=== PATIENT | male | born 1985 | race African-American/Black ===

== ENCOUNTER 2016-11-21 19:41 | Emergency (ER) | payer SELFPAY ==
[~2016-11-21] VITALS: Ht 170.2 cm; Wt 104.6 kg
[~2016-11-21 19:41] MED LIST: HYDR-971 PO
--- NOTE | 2016-11-21 19:58 | PHYS DOC ---
Past History Past Medical History: No Pertinent History Past Surgical History: No Surgical History Alcohol Use: None Drug Use: None Adult General HPI HPI Patient is a 31 year old male who presents with right great toe pain. Approximately 2 hours ago he dropped a TV on his toe. He is having pain "12" out of 10 now. Did ambulate here. Review of Systems Review of Systems Musculoskeletal: Foot pain Integument: Denies rash or skin lesions Allergies Allergies Allergies Coded Allergies Type Severity Reaction Last Updated Verified No Known Drug Allergies 11/18/14 No Physical Exam Physical Exam Constitutional: Well developed, well nourished, no acute distress, non-toxic appearance. Skin: Warm, dry, no erythema, no rash. No laceration or abrasion Extremities: Tender over Great toe; slight ecchymosis. NVI distally. Neurologic: Alert and oriented X 3, normal motor function, normal sensory function, no focal deficits noted. Radiology/Procedures Radiology/Procedures Right foot x-ray interpreted by myself at 1915 PM. Shows subtle small fracture of the proximal lateral aspect of the distal phalanx. No dislocation. No metatarsal or carpal fracture noted. Course & Med Decision Making Course & Med Decision Making Xray with small fracture as noted. Placed in post op shoe. Tylenol #3 po here. Home to ice and elevate. Dragon Disclaimer Dragon Disclaimer This chart was dictated in whole or in part using Voice Recognition software in a busy, high-work load, and often noisy Emergency Department environment. It may contain unintended and wholly unrecognized errors or omissions. Departure Departure: Impression: Primary Impression: Fracture of right great toe Disposition: HOME, SELF-CARE Condition: STABLE Referrals: PCP,NO (PCP) Patient Instructions: Toe Fracture Additional Instructions: Wear the post op shoe for comfort Scripts Acetaminophen With Codeine (TYLENOL WITH CODEINE #3 TABLET) 1 Each Tablet 1 TAB PO Q4-6HRS, #30 TAB Prov: LA KRUEGER MD 11/21/16 Problem Qualifiers Primary Impression: Fracture of right great toe Encounter type: initial encounter Fracture type: closed Phalanx: distal Fracture alignment: nondisplaced Qualified Codes: S92.424A - Nondisplaced fracture of distal phalanx of right great toe, initial encounter for closed fracture LA KRUEGER MD Nov 21, 2016 19:58
[2016-11-21] MEDS ORDERED: ACET-704 PO (20:31)
[2016-11-21] MEDS: ACETAMINOPHEN/CODEINE 300/30MG TABLET PO ONE (20:40)
[2016-11-21 20:45] VITALS: BP 144/76
--- NOTE | 2016-11-22 08:08 | RAD ---
Exam performed: 3 views right foot. History: Right foot pain status post dropping TV of the right foot. Severe pain and swelling in the great toe. Date of service: 11/21/16. Comparison: None available 3 views right foot findings: There is a tiny intra-articular fracture lateral aspect of the base of first distal phalanx with overlying soft tissue swelling. The remainder alignment appears preserved. No additional fractures seen. There is diffuse soft tissue swelling. Impression: Intra-articular fracture base of first distal phalanx.
== END 2016-11-21 20:51 | disposition home or self-care (01) ==
LOC: ER 19:41
DX: S92.411A Displaced fracture of proximal phalanx of right great toe, initial encounter for closed fracture (principal); W20.8XXA Other cause of strike by thrown, projected or falling object, initial encounter; Y93.89 Activity, other specified; Y99.8 Other external cause status; Y92.89 Other specified places as the place of occurrence of the external cause
CPT/HCPCS: 73630; 99284

== ENCOUNTER 2018-05-02 15:05 | Emergency (ER) | payer SELFPAY ==
[~2018-05-02 15:05] MED LIST changes: +ACET-704 PO; +HYDR-3165 PO; -HYDR-971 PO
[2018-05-02] MEDS ORDERED: IV NORMAL SALINE 1,000ML 1,000 ML IV SCH (15:31)
[2018-05-02 15:46] LABS: BASO # 0.1 x10^3/uL (0.0-0.2); BASO % 1 % (0-3); EOS # 0.1 x10^3/uL (0.0-0.7); EOS % 1 % (0-3); HEMATOCRIT 50.7 % (39.0-53.0); HEMOGLOBIN 16.7 g/dL (13.0-17.5); LYMPH # 2.6 x10^3/uL (1.0-4.8); LYMPH % 32 % (24-48); MEAN CORPUSCULAR HEMOGLOBIN 28 pg (25-35); MEAN CORPUSCULAR HGB CONC 33 g/dL (31-37); MEAN CORPUSCULAR VOLUME 85 fL (79-100); MONO # 0.8 x10^3/uL (0.0-1.1); MONO % 10 % (0-9); NEUT # 4.5 x10^3uL (1.8-7.7); NEUT % 56 % (31-73); PLATELET COUNT 270 x10^3/uL (140-400); RED BLOOD COUNT 5.96 x10^6/uL (4.30-5.70); RED CELL DISTRIBUTION WIDTH 14.4 % (11.5-14.5)
--- NOTE | 2018-05-02 15:49 | RAD ---
PQRS Compliance statement: One or more of the following individualized dose reduction techniques were utilized for this examination: 1. Automated exposure control. 2. Adjustment of the mA and/or kV according to patient size. 3. Use of iterative reconstruction technique. Indication:AUDITORY/VISUAL HALLUCINATIONS TIMES 3 DAYS WITH DIZZINESS TECHNIQUE: CT head without IV contrast COMPARISON:None FINDINGS: No pathologic extra-axial or intra-axial fluid collection. The ventricles and basal cisterns are within normal limits. No acute intracranial bleed. No focal loss of rascon-white differentiation. Orbits are within normal limits. No acute calvarial fracture suspicious calvarial lesion. Visualized paranasal sinuses and mastoid air cells are clear. IMPRESSION: No acute intracranial process on this noncontrast CT. Electronically signed by: Thom Junior DO (05/02/2018 3:44 PM) [id number]
[2018-05-02 15:57] LABS: ALBUMIN 4.2 g/dL (3.4-5.0); CALCIUM 9.3 mg/dL (8.5-10.1); CREATININE 1.6 mg/dL (0.7-1.3); DIRECT BILIRUBIN 0.1 mg/dL (0.0-0.2); GFR 61.7; MAGNESIUM 2.3 mg/dL (1.8-2.4); POTASSIUM 3.7 mmol/L (3.5-5.1); TOTAL BILIRUBIN 0.7 mg/dL (0.2-1.0); TOTAL PROTEIN 8.2 g/dL (6.4-8.2)
--- NOTE | 2018-05-02 16:04 | PHYS DOC ---
Past History Past Medical History: No Pertinent History Past Surgical History: No Surgical History Smoking: Cigarettes Alcohol Use: Occasionally Drug Use: None Adult General Chief Complaint Chief Complaint: hearing voices, palpitation HPI HPI Patient is a 32 year old made who presents with complaining of multiple problem. Patient states he was in a [employer] party 4 days ago and had alcohol without using any drugs. Patient states for the last 4 days he doesn't feel right and had palpitation without chest pain and shortness of breath. Patient also complaining of hearing radio voice and seeing letters without giving him a special message. Patient denies drinking alcohol for the last 4 days. Patient denies suicidal or homicidal ideation and any medical problem. Patient states he missed his work for the last 4 days. Review of Systems Review of Systems Constitutional: Denies fever or chills [] Eyes: Denies change in visual acuity, redness, or eye pain [] HENT: Denies nasal congestion or sore throat [] Respiratory: Denies cough or shortness of breath [] Cardiovascular: No additional information not addressed in HPI [] GI: Denies abdominal pain, nausea, vomiting, bloody stools or diarrhea [] : Denies dysuria or hematuria [] Musculoskeletal: Denies back pain or joint pain [] Integument: Denies rash or skin lesions [] Neurologic: Denies headache, focal weakness or sensory changes [] Endocrine: Denies polyuria or polydipsia [] All other systems were reviewed and found to be within normal limits, except as documented in this note. Current Medications Current Medications Current Medications Medications (Trade) Dose Ordered Sig/Ayden Start Time Stop Time Status Last Admin Dose Admin Sodium Chloride 1,000 ml @ 1,000 mls/hr Q1H 05/02/18 15:31 05/02/18 16:30 Allergies Allergies Allergies Coded Allergies Type Severity Reaction Last Updated Verified naproxen Allergy Intermediate 11/21/16 Yes Physical Exam Physical Exam Constitutional: Well nourished, mild acute distress, non-toxic appearance, anxious, smelling of alcohol on breath. [] HENT: Normocephalic, atraumatic oropharynx moist, no oral exudates, nose normal. [] Eyes: PERRLA, EOMI, conjunctiva normal, no discharge. [] Neck: Normal range of motion, no tenderness, supple, no stridor. [] Cardiovascular: Tachycardia, no murmur [] Lungs & Thorax: Bilateral breath sounds clear to auscultation [] Abdomen: Bowel sounds normal, soft, no tenderness, no masses, no pulsatile masses. [] Skin: Warm, dry, no erythema, no rash. [] Back: No tenderness, no CVA tenderness. [] Extremities: No tenderness, no cyanosis, no clubbing, ROM intact, no edema. [] Neurologic: Alert and oriented X 3, normal motor function, normal sensory function, no focal deficits noted. [] Psychologic: Affect anxious, judgement normal, mood normal. [] Current Patient Data Vital Signs Vital Signs Date Time Temp Pulse Resp B/P (MAP) Pulse Ox O2 Delivery O2 Flow Rate FiO2 05/02/18 15:40 98.6 116 30 98 Room Air Lab Results Laboratory Tests Test 05/02/18 15:20 White Blood Count 8.0 x10^3/uL (4.0-11.0) Red Blood Count 5.96 x10^6/uL (4.30-5.70) H Hemoglobin 16.7 g/dL (13.0-17.5) Hematocrit 50.7 % (39.0-53.0) Mean Corpuscular Volume 85 fL (79-100) Mean Corpuscular Hemoglobin 28 pg (25-35) Mean Corpuscular Hemoglobin Concent 33 g/dL (31-37) Red Cell Distribution Width 14.4 % (11.5-14.5) Platelet Count 270 x10^3/uL (140-400) Neutrophils (%) (Auto) 56 % (31-73) Lymphocytes (%) (Auto) 32 % (24-48) Monocytes (%) (Auto) 10 % (0-9) H Eosinophils (%) (Auto) 1 % (0-3) Basophils (%) (Auto) 1 % (0-3) Neutrophils # (Auto) 4.5 x10^3uL (1.8-7.7) Lymphocytes # (Auto) 2.6 x10^3/uL (1.0-4.8) Monocytes # (Auto) 0.8 x10^3/uL (0.0-1.1) Eosinophils # (Auto) 0.1 x10^3/uL (0.0-0.7) Basophils # (Auto) 0.1 x10^3/uL (0.0-0.2) EKG EKG EKG interpreted by me. EKG at 1531 showed sinus tachycardia at rate of 107, no acute ST and T-wave abnormalities, normal NH and QT intervals. Radiology/Procedures Radiology/Procedures [] Course & Med Decision Making Course & Med Decision Making Pertinent Labs reviewed. (See chart for details) Evaluation of patient in ER showed 32-year-old male patient with complaining of hearing voices and palpitation and not feeling right for the last 4 days after he had plenty of alcohol without using any drugs. Patient was acting like under influence of the right and had positive methamphetamine in UDS. Patient also had blood alcohol of 19. Patient was advised to avoid using drug and alcohol. Patient denied suicidal or homicidal ideation. Patient ambulated without problem. Dragon Disclaimer Dragon Disclaimer This electronic medical record was generated, in whole or in part, using a voice recognition dictation system. Departure Departure: Impression: Primary Impression: Methamphetamine abuse Additional Impressions: Palpitation Tobacco abuse counseling Tobacco abuse Alcohol abuse Hallucination Disposition: 01 HOME, SELF-CARE (1713) Condition: IMPROVED Referrals: PCP,NO (PCP) Patient Instructions: Alcohol, FAQs, Hallucinations and Delusions, Methamphetamine Abuse, Complications, Smoking Cessation, Tips For Success Additional Instructions: Drink plenty of liquids Follow-up with your primary care physician in 3-5 days Return to ER if not getting better Problem Qualifiers THOMAS GOLDMAN MD May 02, 2018 16:04
[2018-05-02 16:40] VITALS: BP 141/91
[2018-05-02] MEDS ORDERED: IV NORMAL SALINE 1,000ML 1,000 ML IV ONE (16:45)
[2018-05-02 16:58] LABS: AMPHETAMINE/METHAMPHETAMINE POS (NEG); BARBITURATES NEG (NEG); BENZODIAZEPINES NEG (NEG); CANNABINOIDS NEG (NEG); COCAINE NEG (NEG); METHADONE NEG (NEG); OPIATES NEG (NEG); PHENCYCLIDINE NEG (NEG)
[2018-05-02 17:05] LABS: BACTERIA,URINE FEW /HPF (0-FEW); BILIRUBIN,URINE NEG (NEG); CLARITY,URINE HAZY; COLOR,URINE YELLOW; GLUCOSE,URINE NEG (NEG); NITRITE,URINE NEG (NEG); UROBILINOGEN,URINE 2 mg/dL (0.2 mg/dL); WBC,URINE RARE /HPF (0-4)
[2018-05-02 17:06] LABS: HYALINE CASTS, URINE OCC /HPF
--- NOTE | 2018-05-10 08:45 | EKG ---
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
== END 2018-05-02 17:20 | disposition home or self-care (01) ==
LOC: ER 15:05
DX: F15.90 Other stimulant use, unspecified, uncomplicated (principal); R00.2 Palpitations; R44.0 Auditory hallucinations; R42 Dizziness and giddiness; F17.210 Nicotine dependence, cigarettes, uncomplicated; F10.10 Alcohol abuse, uncomplicated; Z71.6 Tobacco abuse counseling; Z88.8 Allergy status to other drugs, medicaments and biological substances; Y90.0 Blood alcohol level of less than 20 mg/100 ml
CPT/HCPCS: 36415; 70450; 80048; 80076; 80307; 81001; 83735; 85025; 93005; 96360; 99284; G0480; J7030

== ENCOUNTER 2018-09-28 11:35 | Emergency (ER) | payer SELFPAY ==
[~2018-09-28] VITALS: Ht 172.7 cm; Wt 94.0 kg
[2018-09-28 13:03] LABS: BASO # 0.1 x10^3/uL (0.0-0.2); BASO % 1 % (0-3); EOS # 0.2 x10^3/uL (0.0-0.7); EOS % 2 % (0-3); HEMATOCRIT 44.2 % (39.0-53.0); HEMOGLOBIN 14.2 g/dL (13.0-17.5); LYMPH # 1.9 x10^3/uL (1.0-4.8); LYMPH % 25 % (24-48); MEAN CORPUSCULAR HEMOGLOBIN 28 pg (25-35); MEAN CORPUSCULAR HGB CONC 32 g/dL (31-37); MEAN CORPUSCULAR VOLUME 86 fL (79-100); MONO # 0.7 x10^3/uL (0.0-1.1); MONO % 9 % (0-9); NEUT # 4.7 x10^3uL (1.8-7.7); NEUT % 63 % (31-73); PLATELET COUNT 215 x10^3/uL (140-400); RED BLOOD COUNT 5.15 x10^6/uL (4.30-5.70); WHITE BLOOD COUNT 7.5 x10^3/uL (4.0-11.0)
[2018-09-28 13:13] LABS: ALBUMIN 3.4 g/dL (3.4-5.0); CALCIUM 8.8 mg/dL (8.5-10.1); CREATININE 1.3 mg/dL (0.7-1.3); GFR 77.9; POTASSIUM 3.5 mmol/L (3.5-5.1); TOTAL BILIRUBIN 0.6 mg/dL (0.2-1.0); TOTAL PROTEIN 6.7 g/dL (6.4-8.2)
[2018-09-28 13:31] LABS: AMPHETAMINE/METHAMPHETAMINE POS (NEG); BARBITURATES NEG (NEG); BENZODIAZEPINES NEG (NEG); CANNABINOIDS NEG (NEG); COCAINE NEG (NEG); METHADONE NEG (NEG); OPIATES NEG (NEG); PHENCYCLIDINE NEG (NEG)
[2018-09-28 13:40] LABS: CLARITY,URINE CLEAR; COLOR,URINE AMBER; GLUCOSE,URINE NEG (NEG)
[2018-09-28 13:41] LABS: BILIRUBIN,URINE NEG (NEG); NITRITE,URINE NEG (NEG); UROBILINOGEN,URINE 8 mg/dL (0.2 mg/dL)
[2018-09-28 13:42] LABS: BACTERIA,URINE 0 /HPF (0-FEW); SQUAMOUS EPITHELIAL CELL,UR FEW /LPF; WBC,URINE 0 /HPF (0-4)
--- NOTE | 2018-09-28 15:29 | PHYS DOC ---
Past History Past Medical History: No Pertinent History Past Surgical History: No Surgical History Smoking: Cigarettes Alcohol Use: Occasionally Drug Use: Cocaine, Methamphetamine Adult General Chief Complaint Chief Complaint: PSYCH EVALUATION HPI HPI 33-year-old male presents with suicidal ideation. The patient has been having spots for some time. They've been getting worse lately. He has also started to hear voices. He is paranoid that people are out to get him and that his only escape his to kill himself. Patient admits that he has been methamphetamine late ly. He denies any medical complaints. He has expressed a desire for help. Review of Systems Review of Systems Constitutional: Denies fever or chills [] Eyes: Denies change in visual acuity, redness, or eye pain [] HENT: Denies nasal congestion or sore throat [] Respiratory: Denies cough or shortness of breath [] Cardiovascular: No additional information not addressed in HPI [] GI: Denies abdominal pain, nausea, vomiting, bloody stools or diarrhea [] : Denies dysuria or hematuria [] Musculoskeletal: Denies back pain or joint pain [] Integument: Denies rash or skin lesions [] Neurologic: Auditory hallucinations, paranoia. Denies headache, focal weakness or sensory changes [] Endocrine: Denies polyuria or polydipsia [] All other systems were reviewed and found to be within normal limits, except as documented in this note. Allergies Allergies Allergies Coded Allergies Type Severity Reaction Last Updated Verified naproxen Allergy Intermediate 11/21/16 Yes Physical Exam Physical Exam Constitutional: Well developed, well nourished, no acute distress, non-toxic appearance. [] HENT: Normocephalic, atraumatic, bilateral external ears normal, oropharynx moist, no oral exudates, nose normal. [] Eyes: PERRLA, EOMI, conjunctiva normal, no discharge. [] Neck: Normal range of motion, no tenderness, supple, no stridor. [] Cardiovascular:Heart rate regular rhythm, no murmur [] Lungs & Thorax: Bilateral breath sounds clear to auscultation [] Abdomen: Bowel sounds normal, soft, no tenderness, no masses, no pulsatile masses. [] Skin: Warm, dry, no erythema, no rash. [] Back: No tenderness, no CVA tenderness. [] Extremities: No tenderness, no cyanosis, no clubbing, ROM intact, no edema. [] Neurologic: Alert and oriented X 3, normal motor function, normal sensory function, no focal deficits noted. [] Psychologic: Affect normal, judgement normal, mood anxious, paranoid. Suicidal ideation, paranoia and auditory hallucinations.[] Current Patient Data Vital Signs Vital Signs Date Time Temp Pulse Resp B/P (MAP) Pulse Ox O2 Delivery O2 Flow Rate FiO2 09/28/18 11:42 97.7 88 16 96 Room Air Lab Results Laboratory Tests Test 09/28/18 12:45 09/28/18 13:09 White Blood Count 7.5 x10^3/uL (4.0-11.0) Red Blood Count 5.15 x10^6/uL (4.30-5.70) Hemoglobin 14.2 g/dL (13.0-17.5) Hematocrit 44.2 % (39.0-53.0) Mean Corpuscular Volume 86 fL (79-100) Mean Corpuscular Hemoglobin 28 pg (25-35) Mean Corpuscular Hemoglobin Concent 32 g/dL (31-37) Red Cell Distribution Width 14.0 % (11.5-14.5) Platelet Count 215 x10^3/uL (140-400) Neutrophils (%) (Auto) 63 % (31-73) Lymphocytes (%) (Auto) 25 % (24-48) Monocytes (%) (Auto) 9 % (0-9) Eosinophils (%) (Auto) 2 % (0-3) Basophils (%) (Auto) 1 % (0-3) Neutrophils # (Auto) 4.7 x10^3uL (1.8-7.7) Lymphocytes # (Auto) 1.9 x10^3/uL (1.0-4.8) Monocytes # (Auto) 0.7 x10^3/uL (0.0-1.1) Eosinophils # (Auto) 0.2 x10^3/uL (0.0-0.7) Basophils # (Auto) 0.1 x10^3/uL (0.0-0.2) Sodium Level 141 mmol/L (136-145) Potassium Level 3.5 mmol/L (3.5-5.1) Chloride Level 106 mmol/L (98-107) Carbon Dioxide Level 27 mmol/L (21-32) Anion Gap 8 (6-14) Blood Urea Nitrogen 11 mg/dL (8-26) Creatinine 1.3 mg/dL (0.7-1.3) Estimated GFR (Cockcroft-Gault) 77.9 BUN/Creatinine Ratio 8 (6-20) Glucose Level 103 mg/dL (70-99) H Calcium Level 8.8 mg/dL (8.5-10.1) Total Bilirubin 0.6 mg/dL (0.2-1.0) Aspartate Amino Transferase (AST) 33 U/L (15-37) Alanine Aminotransferase (ALT) 38 U/L (16-63) Alkaline Phosphatase 57 U/L (46-116) Total Protein 6.7 g/dL (6.4-8.2) Albumin 3.4 g/dL (3.4-5.0) Albumin/Globulin Ratio 1.0 (1.0-1.7) Urine Collection Type Unknown Urine Color Natalee Urine Clarity Clear Urine pH 7.0 Urine Specific Edison 1.025 Urine Protein 30 mg/dl (NEG-TRACE) Urine Glucose (UA) Neg mg/dL (NEG) Urine Ketones (Stick) Trace mg/dL (NEG) Urine Blood Small (NEG) Urine Nitrite Neg (NEG) Urine Bilirubin Neg (NEG) Urine Urobilinogen Dipstick 8 mg/dL (0.2 mg/dL) Urine Leukocyte Esterase Neg (NEG) Urine RBC 11-20 /HPF (0-2) Urine WBC 0 /HPF (0-4) Urine Squamous Epithelial Cells Few /LPF Urine Bacteria 0 /HPF (0-FEW) Urine Mucus Mod /LPF Urine Opiates Screen Neg (NEG) Urine Methadone Screen Neg (NEG) Urine Barbiturates Neg (NEG) Urine Phencyclidine Screen Neg (NEG) Urine Amphetamine/Methamphetamine Pos (NEG) Urine Benzodiazepines Screen Neg (NEG) Urine Cocaine Screen Neg (NEG) Urine Cannabinoids Screen Neg (NEG) Urine Ethyl Alcohol Neg (NEG) EKG EKG [] Radiology/Procedures Radiology/Procedures [] Course & Med Decision Making Course & Med Decision Making Pertinent Labs and Imaging studies reviewed. (See chart for details) The patient will be screened by the [facility]. The psych screening has found that patient does meet inpatient criteria. We are working on placement for the patient at this time. The patient has been accepted for transfer to [facility] by Dr. Holguin. He will go by ambulance. [] Dragon Disclaimer Dragon Disclaimer This electronic medical record was generated, in whole or in part, using a voice recognition dictation system. Departure Departure: Impression: Primary Impression: Hallucination Additional Impression: Methamphetamine abuse Disposition: XFER SHT-TRM HOSP Condition: STABLE Referrals: PCP,NO (PCP) Problem Qualifiers KELSEA BRYANT DO Sep 28, 2018 15:29
[2018-09-28 17:46] VITALS: BP 146/94
== END 2018-09-28 17:46 | disposition short-term general hospital (02) ==
LOC: ER 11:35
DX: R44.0 Auditory hallucinations (principal); F15.10 Other stimulant abuse, uncomplicated; R45.851 Suicidal ideations; F22 Delusional disorders; F17.210 Nicotine dependence, cigarettes, uncomplicated; F12.10 Cannabis abuse, uncomplicated; Z88.6 Allergy status to analgesic agent
CPT/HCPCS: 36415; 80053; 80307; 81001; 85025; 99285

== ENCOUNTER 2019-07-19 07:32 | Emergency (ER) | payer MEDICAID ==
[~2019-07-19] VITALS: Ht 172.7 cm; Wt 90.8 kg
--- NOTE | 2019-07-19 07:49 | EKG ---
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
[2019-07-19 08:00] LABS: BASO % 1 % (0-3); EOS % 0 % (0-3); HEMATOCRIT 43.5 % (39.0-53.0); HEMOGLOBIN 14.4 g/dL (13.0-17.5); LYMPH # 1.8 x10^3/uL (1.0-4.8); LYMPH % 18 % (24-48); MEAN CORPUSCULAR HEMOGLOBIN 28 pg (25-35); MEAN CORPUSCULAR HGB CONC 33 g/dL (31-37); MEAN CORPUSCULAR VOLUME 84 fL (79-100); MONO # 1.1 x10^3/uL (0.0-1.1); MONO % 11 % (0-9); NEUT # 7.1 x10^3uL (1.8-7.7); NEUT % 70 % (31-73); PLATELET COUNT 223 x10^3/uL (140-400); RED CELL DISTRIBUTION WIDTH 14.1 % (11.5-14.5); WHITE BLOOD COUNT 10.1 x10^3/uL (4.0-11.0)
[2019-07-19] MEDS ORDERED: diphenhydrAMINE 50 MG/ML VIAL IVP ONE (08:00)
[2019-07-19 08:15] LABS: CALCIUM 9.1 mg/dL (8.5-10.1); CREATININE 1.2 mg/dL (0.7-1.3); GFR 85.4; POTASSIUM 3.2 mmol/L (3.5-5.1)
--- NOTE | 2019-07-19 08:16 | PHYS DOC ---
Past History Past Medical History: No Pertinent History (KELSEA BRYANT DO) Past Medical History: Anxiety, Depression (JUSTIN MCKEON MD) Past Surgical History: No Surgical History (KELSEA BRYANT DO) Smoking: Cigarettes Alcohol Use: Occasionally Drug Use: Cocaine, Methamphetamine (KELSEA BRYANT DO) General Adult EDM: Chief Complaint: SUICIDAL IDEATION HPI: HPI: 33-year-old male presents with suicidal ideation. The patient has been feeling generally he is tearful during our interview. Patient mitts to doing methamphetamines a few days ago. On arrival his heart rate is 115. Patient states that his suicidal plan is by police. He has had suicidal ideations in the past. He has been hospitalized previously. He denies any medical complaints. (KELSEA BRYANT DO) Review of Systems: Review of Systems: Constitutional: Denies fever or chills Eyes: Denies change in visual acuity HENT: Denies nasal congestion or sore throat Respiratory: Denies cough or shortness of breath Cardiovascular: Denies chest pain or edema GI: Denies abdominal pain, nausea, vomiting, bloody stools or diarrhea : Denies dysuria Musculoskeletal: Denies back pain or joint pain Integument: Denies rash Neurologic: Denies headache, focal weakness or sensory changes Endocrine: Denies polyuria or polydipsia Lymphatic: Denies swollen glands Psychiatric: Depressed, suicidal ideation (KELSEA BRYANT DO) Heart Score: Risk Factors: Risk Factors: DM, Current or recent (<one month) smoker, HTN, HLP, family history of CAD, obesity. Risk Scores: Score 0 - 3: 2.5% MACE over next 6 weeks - Discharge Home Score 4 - 6: 20.3% MACE over next 6 weeks - Admit for Clinical Observation Score 7 - 10: 72.7% MACE over next 6 weeks - Early Invasive Strategies (KELSEA BRYANT DO) Current Medications: Current Meds: Current Medications Medications (Trade) Dose Ordered Sig/Ayden Start Time Stop Time Status Last Admin Dose Admin Diphenhydramine HCl (Benadryl) 25 mg 1X ONCE 07/19/19 08:00 07/19/19 08:01 DC 07/19/19 08:05 25 MG Lorazepam (Ativan Inj) 2 mg 1X ONCE 07/19/19 08:00 07/19/19 08:01 DC 07/19/19 08:05 2 MG (KELSEA BRYANT DO) Allergies: Allergies: Allergies Coded Allergies Type Severity Reaction Last Updated Verified naproxen Allergy Intermediate 11/21/16 Yes (KELSEA BRYANT DO) Physical Exam: PE: Constitutional: Well developed, well nourished, no acute distress, non-toxic appearance. [] HENT: Normocephalic, atraumatic, bilateral external ears normal, oropharynx moist, no oral exudates, nose normal. [] Eyes: PERRLA, EOMI, conjunctiva normal, no discharge. [] Neck: Normal range of motion, no tenderness, supple, no stridor. [] Cardiovascular: Heart rate 15, regular rhythm, no murmur [] Lungs & Thorax: Bilateral breath sounds clear to auscultation [] Abdomen: Bowel sounds normal, soft, no tenderness, no masses, no pulsatile masses. [] Skin: Warm, dry, no erythema, no rash. [] Back: No tenderness, no CVA tenderness. [] Extremities: No tenderness, no cyanosis, no clubbing, ROM intact, no edema. [] Neurologic: Alert and oriented X 3, normal motor function, normal sensory function, no focal deficits noted. [] Psychologic: Tearful, depressed, suicidal [] (KELSEA BRYANT DO) Current Patient Data: Labs: Laboratory Tests Test 07/19/19 07:48 White Blood Count 10.1 x10^3/uL (4.0-11.0) Red Blood Count 5.20 x10^6/uL (4.30-5.70) Hemoglobin 14.4 g/dL (13.0-17.5) Hematocrit 43.5 % (39.0-53.0) Mean Corpuscular Volume 84 fL (79-100) Mean Corpuscular Hemoglobin 28 pg (25-35) Mean Corpuscular Hemoglobin Concent 33 g/dL (31-37) Red Cell Distribution Width 14.1 % (11.5-14.5) Platelet Count 223 x10^3/uL (140-400) Neutrophils (%) (Auto) 70 % (31-73) Lymphocytes (%) (Auto) 18 % (24-48) L Monocytes (%) (Auto) 11 % (0-9) H Eosinophils (%) (Auto) 0 % (0-3) Basophils (%) (Auto) 1 % (0-3) Neutrophils # (Auto) 7.1 x10^3uL (1.8-7.7) Lymphocytes # (Auto) 1.8 x10^3/uL (1.0-4.8) Monocytes # (Auto) 1.1 x10^3/uL (0.0-1.1) Eosinophils # (Auto) 0.0 x10^3/uL (0.0-0.7) Basophils # (Auto) 0.0 x10^3/uL (0.0-0.2) (KELSEA BRYANT DO) EKG: EKG: Sinus tachycardia, rate 115, normal axis, no ST elevations or depressions. [] (KELSEA BRYANT DO) Radiology/Procedures: Radiology/Procedures: [] (KELSEA BRYANT DO) Course & Med Decision Making: Course & Med Decision Making Pertinent Labs and Imaging studies reviewed. (See chart for details) The patient's labs are unremarkable. His urine drug screen is positive for methamphetamine. We have given him 2 mg of Ativan IV. He has been calm throughout his visit. His psychological screen has determined that he needs to be admitted. We are having difficulty finding placement they will accept him. I am signing the patient out to Dr. Mckeon at 1800. [] (KELSEA BRYANT DO) Course & Med Decision Making PT. Accepted at [facility], Dr. Rodriguez. Impression: 1. Suicidal ideation 2. History of polysubstance abuse 3. Tobacco use 4. History depression 5. History of anxiety (JUSTIN MCKEON MD) Dragon Disclaimer: Dragon Disclaimer: This electronic medical record was generated, in whole or in part, using a voice recognition dictation system. (KELSEA BRYANT DO) Departure Departure: Impression: Primary Impression: Depression with suicidal ideation Disposition: 65 XFER TO PSYCH HOSP/UNIT Condition: STABLE Referrals: PCP,NO (PCP) Dragon Disclaimer This chart was dictated in whole or in part using Voice Recognition software in a busy, high-work load, and often noisy Emergency Department environment. It may contain unintended and wholly unrecognized errors or omissions. (JUSTIN MCKEON MD) [place] Disclaimer This chart was dictated in whole or in part using Voice Recognition software in a busy, high-work load, and often noisy Emergency Department environment. It may contain unintended and wholly unrecognized errors or omissions. (JUSTIN MCKEON MD) KELSEA BRYANT DO Jul 19, 2019 08:16 JUSTIN MCKEON MD Jul 20, 2019 01:11
[2019-07-19 08:20] LABS: ALBUMIN 4.4 g/dL (3.4-5.0); ALBUMIN/GLOBULIN RATIO 1.3 (1.0-1.7); TOTAL BILIRUBIN 0.9 mg/dL (0.2-1.0); TOTAL PROTEIN 7.8 g/dL (6.4-8.2)
[2019-07-19] MEDS ORDERED: IV NORMAL SALINE 1,000ML 1,000 ML IV ONE (10:00)
[2019-07-19 13:26] LABS: BARBITURATES NEG (NEG); BENZODIAZEPINES NEG (NEG); CANNABINOIDS NEG (NEG); COCAINE NEG (NEG); METHADONE NEG (NEG); OPIATES NEG (NEG); PHENCYCLIDINE NEG (NEG)
[2019-07-19 13:28] LABS: AMPHETAMINE/METHAMPHETAMINE POS (NEG)
[2019-07-19 13:33] LABS: BACTERIA,URINE FEW /HPF (0-FEW); BILIRUBIN,URINE NEG (NEG); CLARITY,URINE CLEAR; COLOR,URINE AMBER; GLUCOSE,URINE NEG (NEG); NITRITE,URINE NEG (NEG); SQUAMOUS EPITHELIAL CELL,UR FEW /LPF
[2019-07-19 13:34] LABS: HYALINE CASTS, URINE OCC /HPF
[2019-07-19] MEDS ORDERED: POTASSIUM CHLORIDE 20 MEQ TABLET.ER. PO ONE (20:30)
[2019-07-20 07:08] VITALS: BP 107/52
== END 2019-07-20 07:55 ==
LOC: ER 07:32
DX: R45.851 Suicidal ideations (principal); F19.10 Other psychoactive substance abuse, uncomplicated; F32.9 Major depressive disorder, single episode, unspecified; F41.9 Anxiety disorder, unspecified; F15.10 Other stimulant abuse, uncomplicated; F14.10 Cocaine abuse, uncomplicated; F17.210 Nicotine dependence, cigarettes, uncomplicated; Z88.6 Allergy status to analgesic agent
CPT/HCPCS: 36415; 80053; 80307; 81001; 85025; 93005; 96374; 96375; 99285; J1200; J2060; 99291-25; J7030

== ENCOUNTER 2019-07-31 18:18 | Emergency (ER) | payer MEDICAID ==
[~2019-07-31] VITALS: Ht 172.7 cm; Wt 90.8 kg
[2019-07-31] MEDS ORDERED: IV RINGERS SOLUTION,LACTATED 1,000 ML IV SCH (18:29)
--- NOTE | 2019-07-31 18:29 | PHYS DOC ---
Past History Past Medical History: Anxiety, Depression (JUSTIN SANCHEZ MD) Past Surgical History: No Surgical History (JUSTIN SANCHEZ MD) Smoking: Cigarettes Alcohol Use: Occasionally Drug Use: Cocaine, Methamphetamine (JUSTIN SANCHEZ MD) General Adult EDM: Chief Complaint: PSYCH EVALUATION HPI: HPI: ...." I am having problems .. depression...thinking about....killing myself...I was at [facility]...but they sent me out...without meds..and I started using Meth. again....I think some one is injecting me with COVID..." " Some one is poisoning me..".. " I should just ..kill myself.. and get over with it...." Patient is a 33 year old male who presents with above hx and complaints of depression and thoughts of self-harm. Patient has not developed a firm plan on how he would kill himself. Patient having frequent thoughts of suicide. Patient has a past history of anxiety and depression. Patient also having episodes of paranoid delusions and bouts of severe anxiety. Patient has past history of polysubstance abuse. Patient does admit to recent meth use. No history given of immunosuppression. No history of specific ill contacts. No history of recent travel outside the [place] area. Patient previously evaluated our facility on 07/18- for depression and suicidal ideation. (JUSTIN SANCHEZ MD) Review of Systems: Review of Systems: Constitutional: Denies fever or chills Eyes: Denies change in visual acuity HENT: Denies nasal congestion or sore throat Respiratory: Denies cough or shortness of breath Cardiovascular: Denies chest pain or edema GI: Denies abdominal pain, nausea, vomiting, bloody stools or diarrhea : Denies dysuria Musculoskeletal: Denies back pain or joint pain Integument: Denies rash Neurologic: Denies headache, focal weakness or sensory changes Endocrine: Denies polyuria or polydipsia Lymphatic: Denies swollen glands Psychiatric: Complaints of depression, anxiety, and delusions . (JUSTIN SANCHEZ MD) Heart Score: Risk Factors: Risk Factors: DM, Current or recent (<one month) smoker, HTN, HLP, family history of CAD, obesity. Risk Scores: Score 0 - 3: 2.5% MACE over next 6 weeks - Discharge Home Score 4 - 6: 20.3% MACE over next 6 weeks - Admit for Clinical Observation Score 7 - 10: 72.7% MACE over next 6 weeks - Early Invasive Strategies (JUSTIN SANCHEZ MD) Family History: Family History: Noncontributory to presentation (JUSTIN SANCHEZ MD) Current Medications: Current Meds: See nursing for home meds (JUSTIN SANCHEZ MD) Allergies: Allergies: Allergies Coded Allergies Type Severity Reaction Last Updated Verified naproxen Allergy Intermediate 11/21/16 Yes (JUSTIN SANCHEZ MD) Physical Exam: PE: Constitutional: acute emotional distress, non-toxic appearance. [] HENT: Normocephalic, atraumatic, bilateral external ears normal, oropharynx moist, no oral exudates, nose normal. [] Eyes: PERRLA, EOMI, conjunctiva normal, no discharge. [] Neck: Normal range of motion, no tenderness, supple, no stridor. [] Cardiovascular: Tachycardia heart rate regular rhythm, no murmur [] Lungs & Thorax: Bilateral breath sounds equal apex with scattered wheezes on auscultation [] Abdomen: Bowel sounds normal, soft, no tenderness, no masses, no pulsatile masses. [] Skin: Warm, dry, no erythema, no rash. [] Back: No tenderness, no CVA tenderness. [] Extremities: No tenderness, no cyanosis, no clubbing, ROM intact, no edema. [] Neurologic: Alert and oriented X 3, normal motor function, normal sensory function, no focal deficits noted. [] Psychologic: Affect very anxious and agitated, judgement normal, mood reports depression and suicidal ideation. Does appear to have poor insight to his psych issues. Always having delusions of paranoia. (JUSTIN SANCHEZ MD) EKG: EKG: My interpretation EKG shows a sinus rhythm at 110 bpm. No acute morphology [] (JUSTIN SANCHEZ MD) Radiology/Procedures: Radiology/Procedures: [][address] [address] IMAGING REPORT Signed PATIENT: SCOOBY HUNTER ACCOUNT: [id number] : 1985 LOCATION: ER AGE: 33 SEX: M EXAM STATUS: PRE ER ORD. PHYSICIAN: JUSTIN SANCHEZ MD REASON: psych. cough, fever PROCEDURE: PORTABLE CHEST 1V PORTABLE CHEST 1V History: Cough, fever Comparison: June 22, 2015 Findings: Single view of the chest is submitted. There is no infiltrate, pneumothorax, or effusion. The pericardial cardiac silhouette is within normal limits in size. Impression: 1. There is no radiographic evidence of acute cardiopulmonary disease. Electronically signed by: Nara Lucio MD (07/31/2019 7:24 PM) [facility] DICTATED AND SIGNED BY: NARA LUCIO MD DATE: 07/31/191923 CC: JUSTIN SANCHEZ MD; PCP,NO ~ (JUSTIN SANCHEZ MD) Course & Med Decision Making: Course & Med Decision Making Pertinent Labs and Imaging studies reviewed. (See chart for details) with his IV and and and a While Telepsych. was getting information on pt. he left with his IV in and in hospital gown. Security did not arrive in time to restrain the pt. for his Tele. psych. exam. 0015 hrs. Pt.returned to ED by hospital security. Tele psych. advised it would be 1 to 2 hrs. before they could call back to complete his psych. eval. Tele.Psych advised pt. to [facility]. Was just discharged from , with plan follow up. See Tele. Psych. eval. Arron Huston [facility] Impression: 1. Appears to be having acute psychosis with paranoid delusions 2. Depression 3. Anxiety disorder 4. Suicidal ideation 5. Drug Screen + Meth. [] (JUSTIN SANCHEZ MD) Course & Med Decision Making The patient was determined to be voluntary for psychiatric admission. The plan was to [facility] for [id number] appointment and medication discussion. They are not doing [id number] meetings. We encouraged patient to do a telemedicine consult. The patient would like to leave. Since he is voluntary he is allowed to leave. (KELSEA BRYANT DO) Za Disclaimer: Za Disclaimer: This electronic medical record was generated, in whole or in part, using a voice recognition dictation system. (JUSTIN SANCHEZ MD) Departure Departure: Disposition: 01 HOME/RESIDENCE PRIOR TO ADM Condition: STABLE Referrals: PCP,SHANTE (PCP) Za Disclaimer This chart was dictated in whole or in part using Voice Recognition software in a busy, high-work load, and often noisy Emergency Department environment. It may contain unintended and wholly unrecognized errors or omissions. (JUSTIN SANCHEZ MD) JUSTIN SANCHEZ MD July 31, 2019 18:29 KELSEA BRYANT DO August 01, 2019 16:39
--- NOTE | 2019-07-31 19:27 | RAD ---
PORTABLE CHEST 1V History: Cough, fever Comparison: June 22, 2015 Findings: Single view of the chest is submitted. There is no infiltrate, pneumothorax, or effusion. The pericardial cardiac silhouette is within normal limits in size. Impression: 1. There is no radiographic evidence of acute cardiopulmonary disease. Electronically signed by: Jose R Lucio MD (07/31/2019 7:24 PM) [facility]
[2019-07-31 19:53] LABS: CREATININE 1.4 mg/dL (0.7-1.3); GFR 71.5; POTASSIUM 4.2 mmol/L (3.5-5.1)
[2019-07-31 19:54] LABS: BASO % 0 % (0-3); EOS % 0 % (0-3); HEMATOCRIT 44.7 % (39.0-53.0); HEMOGLOBIN 14.6 g/dL (13.0-17.5); LYMPH # 2.8 x10^3/uL (1.0-4.8); LYMPH % 25 % (24-48); MEAN CORPUSCULAR HEMOGLOBIN 28 pg (25-35); MEAN CORPUSCULAR HGB CONC 33 g/dL (31-37); MEAN CORPUSCULAR VOLUME 84 fL (79-100); MONO # 1.5 x10^3/uL (0.0-1.1); MONO % 13 % (0-9); NEUT # 6.8 x10^3uL (1.8-7.7); NEUT % 61 % (31-73); PLATELET COUNT 257 x10^3/uL (140-400); RED BLOOD COUNT 5.31 x10^6/uL (4.30-5.70); RED CELL DISTRIBUTION WIDTH 14.6 % (11.5-14.5); WHITE BLOOD COUNT 11.1 x10^3/uL (4.0-11.0)
[2019-07-31 20:00] LABS: ETHANOL < 10 mg/dL (0-10)
[2019-07-31 20:01] LABS: ACETAMIN < 2.0 mcg/mL (10-30)
[2019-07-31 20:06] LABS: ALBUMIN 4.4 g/dL (3.4-5.0); DIRECT BILIRUBIN 0.2 mg/dL (0.0-0.2); MAGNESIUM 2.2 mg/dL (1.8-2.4); TOTAL BILIRUBIN 0.9 mg/dL (0.2-1.0)
[2019-07-31] MEDS ORDERED: IV RINGERS SOLUTION,LACTATED 1,000 ML IV ONE ×2 (20:45→22:30)
[2019-07-31 23:43] LABS: BARBITURATES NEG (NEG); BENZODIAZEPINES NEG (NEG); CANNABINOIDS NEG (NEG); COCAINE NEG (NEG); METHADONE NEG (NEG); OPIATES NEG (NEG); PHENCYCLIDINE NEG (NEG)
[2019-07-31 23:48] LABS: BILIRUBIN,URINE NEG (NEG); CLARITY,URINE CLEAR; COLOR,URINE YELLOW; GLUCOSE,URINE NEG (NEG)
[2019-07-31 23:49] LABS: BACTERIA,URINE FEW /HPF (0-FEW); NITRITE,URINE NEG (NEG); RBC,URINE OCC /HPF (0-2); SQUAMOUS EPITHELIAL CELL,UR FEW /LPF
[2019-07-31 23:50] LABS: AMPHETAMINE/METHAMPHETAMINE POS (NEG)
[2019-08-01] MEDS ORDERED: LORazepam 1 MG TABLET PO ONE (04:30)
[2019-08-01 07:30] VITALS: BP 131/90
--- NOTE | 2019-08-02 23:08 | EKG ---
[address] [address] Test Date: 2019-07-31 Test Time: 18:43:49 Pat Name: SCOOBY HUNTER Department: Room: Gender: M Post Acute Care Registered Nurse: Marcos : 1985 Requested By: JUSTIN SANCHEZ Order Number: [id number] Reading MD: Measurements Intervals [place] Rate: 110 P: 62 DC: 118 QRS: 59 QRSD: 78 T: 58 QT: 326 QTc: 447 Interpretive Statements SINUS TACHYCARDIA OTHERWISE NORMAL ECG RI6.02 No previous ECG available for comparison
== END 2019-08-01 08:19 | disposition home or self-care (01) ==
LOC: ER 18:18
DX: F23 Brief psychotic disorder (principal); F32.9 Major depressive disorder, single episode, unspecified; F41.9 Anxiety disorder, unspecified; F17.210 Nicotine dependence, cigarettes, uncomplicated; F14.90 Cocaine use, unspecified, uncomplicated; Z88.8 Allergy status to other drugs, medicaments and biological substances
CPT/HCPCS: 36415; 71045; 80048; 80076; 80307; 80329; 81001; 82550; 83690; 83735; 83880; 84443; 84484; 85025; 85610; 85730; 86140; 87086; 93005; 99285; G0480; J7120

== ENCOUNTER 2019-08-02 13:10 | Emergency (ER) | payer MEDICAID ==
[2019-08-01 07:30] VITALS: BP 131/90
[~2019-08-02] VITALS: Ht 167.6 cm; Wt 90.0 kg
--- NOTE | 2019-08-02 13:40 | RAD ---
EXAM: CHEST 1 VIEW History: Shortness of breath COMPARISON: 10/31/2019 TECHNIQUE: Single portable radiograph of the chest FINDINGS: The cardiac silhouette is unremarkable. The lungs are clear bilaterally. The costophrenic sulci are clear and well demarcated. IMPRESSION: No radiographic evidence of an acute cardiopulmonary process. Electronically signed by: Matthew Amos MD (08/02/2019 1:37 PM) [id number]
[2019-08-02 13:57] LABS: AMPHETAMINE/METHAMPHETAMINE POS (NEG); BARBITURATES NEG (NEG); BENZODIAZEPINES NEG (NEG); CANNABINOIDS NEG (NEG); COCAINE NEG (NEG); METHADONE NEG (NEG); OPIATES NEG (NEG); PHENCYCLIDINE NEG (NEG)
--- NOTE | 2019-08-02 14:22 | PHYS DOC ---
Past History Past Medical History: A-Fib, Anxiety, Depression, Hypertension Past Surgical History: No Surgical History Smoking: Cigarettes Alcohol Use: Occasionally Drug Use: Cocaine, Methamphetamine General Adult EDM: Chief Complaint: SHORTNESS OF BREATH HPI: HPI: 33 yo M PMH depression presents to the ed bibems after bystanders called 911, [place]-pt states "I was playing on the benches." Pt with many complaints - states he tested positive for covid at [facility] yesterday. Did meth 2 day ago and has had chest pain since last night. Feels as if he can't breath. ROS: Denies associated SI, HI, hallucinations, fever, chills, n/v/d/c, sore throat, drooling, headache, neck stiffness, chest pain, hemoptysis, orthopnea, back pain, rash, or leg swelling. Review of Systems: Review of Systems: Constitutional: Denies fever or chills Eyes: Denies change in visual acuity HENT: Denies nasal congestion or sore throat Respiratory: Denies cough or shortness of breath Cardiovascular: Denies chest pain or edema GI: Denies abdominal pain, nausea, vomiting, bloody stools or diarrhea : Denies dysuria Musculoskeletal: Denies back pain or joint pain Integument: Denies rash Neurologic: Denies headache, focal weakness or sensory changes Endocrine: Denies polyuria or polydipsia Lymphatic: Denies swollen glands Psychiatric: Denies depression or anxiety Heart Score: Risk Factors: Risk Factors: DM, Current or recent (<one month) smoker, HTN, HLP, family history of CAD, obesity. Risk Scores: Score 0 - 3: 2.5% MACE over next 6 weeks - Discharge Home Score 4 - 6: 20.3% MACE over next 6 weeks - Admit for Clinical Observation Score 7 - 10: 72.7% MACE over next 6 weeks - Early Invasive Strategies Allergies: Allergies: Allergies Coded Allergies Type Severity Reaction Last Updated Verified naproxen Allergy Intermediate 11/21/16 Yes Physical Exam: PE: Constitutional: Well developed, well nourished, no acute distress, non-toxic appearance. [] HENT: Normocephalic, atraumatic, bilateral external ears normal, oropharynx moist, no oral exudates, nose normal. [] Eyes: PERRLA, EOMI, conjunctiva normal, no discharge. [] Neck: Normal range of motion, no tenderness, supple, no stridor. [] Cardiovascular:Heart rate regular rhythm, no murmur [] Lungs & Thorax: Bilateral breath sounds clear to auscultation, speaking in full sentences, 100% RA, no respiratory distress, no active cough Abdomen: Bowel sounds normal, soft, no tenderness, no masses, no pulsatile masses. [] Skin: Warm, dry, no erythema, no rash. [] Back: No tenderness, no CVA tenderness. [] Extremities: No tenderness, no cyanosis, no clubbing, ROM intact, no edema. [] Neurologic: Alert and oriented X 3, normal motor function, normal sensory function, no focal deficits noted. [] Psychologic: Affect normal, judgement normal, mood normal, no psychosis, w/[facility] Current Patient Data: Labs: Laboratory Tests Test 08/02/19 13:28 Urine Opiates Screen Neg (NEG) Urine Methadone Screen Neg (NEG) Urine Barbiturates Neg (NEG) Urine Phencyclidine Screen Neg (NEG) Urine Amphetamine/Methamphetamine Pos (NEG) Urine Benzodiazepines Screen Neg (NEG) Urine Cocaine Screen Neg (NEG) Urine Cannabinoids Screen Neg (NEG) Urine Ethyl Alcohol Neg (NEG) EKG: EKG: [] Radiology/Procedures: Radiology/Procedures: [] Impressions: RN called [facility]-no record of pt in ed for the past 3 months. Per rn pt was in ed the prior night and disposed to outpt psych this morning after a psych assessment. The patient has left the emergency department (seen by myself/rn exiting trauma bay - heard us calling for him to return). Pt did not communicate leaving to myself, rn or staff. There was no opportunity to discuss pts' deciison to leave, provide medical advice or discuss alternatives to leaving. Pt had [facility], was aware he was not medically cleared from life or limb threatening processes. Course & Med Decision Making: Course & Med Decision Making Pertinent Labs and Imaging studies reviewed. (See chart for details) This patient has left emergency department waiting room with no communication to myself, nursing or administrative staff. There was no opportunity to discuss the patient's decision to leave, provide medical advice or discuss alternatives to leaving. The staff has made efforts to locate the patient without success. Dragon Disclaimer: Dragon Disclaimer: This electronic medical record was generated, in whole or in part, using a voice recognition dictation system. Departure Departure: Impression: Primary Impression: Methamphetamine abuse Disposition: 05 TRANSFER OTHER (eloped without notifying medical staff) Condition: LEFT WITHOUT BEING SEEN (eloped) Referrals: FLORENCE HAN (PCP) JAKY ENAMORADO DO August 02, 2019 14:22
[2019-08-02 14:36] LABS: BASO # 0.1 x10^3/uL (0.0-0.2); BASO % 1 % (0-3); EOS % 0 % (0-3); HEMATOCRIT 42.4 % (39.0-53.0); HEMOGLOBIN 13.9 g/dL (13.0-17.5); LYMPH # 2.1 x10^3/uL (1.0-4.8); LYMPH % 20 % (24-48); MEAN CORPUSCULAR HEMOGLOBIN 28 pg (25-35); MEAN CORPUSCULAR HGB CONC 33 g/dL (31-37); MEAN CORPUSCULAR VOLUME 85 fL (79-100); MONO # 1.3 x10^3/uL (0.0-1.1); MONO % 13 % (0-9); NEUT # 6.9 x10^3uL (1.8-7.7); NEUT % 67 % (31-73); PLATELET COUNT 232 x10^3/uL (140-400); RED BLOOD COUNT 5.02 x10^6/uL (4.30-5.70); WHITE BLOOD COUNT 10.4 x10^3/uL (4.0-11.0)
[2019-08-02 14:45] LABS: CALCIUM 9.1 mg/dL (8.5-10.1); CREATININE 1.3 mg/dL (0.7-1.3); GFR 77.9
[2019-08-02 14:52] LABS: ALBUMIN/GLOBULIN RATIO 1.1 (1.0-1.7); TOTAL BILIRUBIN 0.8 mg/dL (0.2-1.0); TOTAL PROTEIN 7.7 g/dL (6.4-8.2)
== END 2019-08-02 14:10 | disposition left against medical advice (07) ==
LOC: ER 13:10
DX: F15.10 Other stimulant abuse, uncomplicated (principal); R07.89 Other chest pain; I48.20 Chronic atrial fibrillation, unspecified; F41.9 Anxiety disorder, unspecified; F32.9 Major depressive disorder, single episode, unspecified; I10 Essential (primary) hypertension; F14.90 Cocaine use, unspecified, uncomplicated; F17.210 Nicotine dependence, cigarettes, uncomplicated; Z88.6 Allergy status to analgesic agent
CPT/HCPCS: 36415; 71045; 80053; 80307; 84484; 85025; 99284; G0480

== ENCOUNTER 2020-10-23 08:13 | Inpatient (IN) | payer MEDICAID ==
[~2020-10-23] VITALS: Ht 172.7 cm; Wt 109.0 kg
[2020-10-23] MEDS ORDERED: ACETAMINOPHEN 500 MG TABLET PO ONE ×2 (08:45→09:03)
[2020-10-23] MEDS ORDERED: METOCLOPRAMIDE HCL 10 MG/2 ML VIAL. IVP ONE (08:45)
[2020-10-23] MEDS ORDERED: IV NORMAL SALINE 1,000ML 1,000 ML IV SCH (08:45)
--- NOTE | 2020-10-23 08:52 | PHYS DOC ---
Past History Past Medical History: No Pertinent History Additional Past Medical Histor: " fluid around heart" Past Surgical History: No Surgical History Smoking: Cigarettes Alcohol Use: Occasionally Drug Use: Cocaine, Methamphetamine General Adult EDM: Chief Complaint: MULTIPLE COMPLAINTS Problems: (1) Fatigue (2) Chest pain HPI: HPI: 35-year-old male presents to the emergency department with multiple complaints including fatigue, chills, chest pain, cough, shortness of breath, nausea, headache and overall just not feeling well. He reports that his chest pain is present when he breathes in deeply, but not there at rest. He admits to some shortness of breath, chills and fever. He has not treated his symptoms at home with anything. He has been vaccinated for Covid, saying that he has had 2 shots. His chest pain does not radiate, is intermittent when he breathes. The patient denies any history of blood clots in his legs or his lungs. The patient denies abdominal pain, urinary symptoms, recent trauma, or any other complaints. Review of Systems: Review of Systems: Constitutional: Admits to fever and chills. Eyes: Denies change in vision, pain. HENT: Admits to congestion, denies loss of sense of taste or smell. Respiratory: Admits to cough and shortness of breath. Cardiovascular: Admits to chest pain, denies leg swelling. GI: Admits to nausea, denies abdominal pain. : Denies change in urination, dysuria. Musculoskeletal: Denies extremity pain, or trauma. Skin: Denies rash, skin change. Neurologic: Admits to headache, denies focal weakness. Psychiatric: Denies depression or anxiety. All other systems reviewed as negative except for what was mentioned in the HPI. Family History: Family History: Noncontributory Current Medications: Current Meds: Current Medications Medications (Trade) Dose Ordered Sig/Ayden Route PRN Reason Start Time Stop Time Status Last Admin Dose Admin Sodium Chloride 1,000 ml @ 1,000 mls/hr Q1H IV 10/23/20 08:45 10/23/20 09:44 DC 10/23/20 09:24 Acetaminophen (Tylenol) 1,000 mg 1X ONCE PO 10/23/20 08:45 10/23/20 09:03 DC 10/23/20 09:16 Metoclopramide HCl (Reglan Vial) 10 mg 1X ONCE IVP 10/23/20 08:45 10/23/20 09:03 DC 10/23/20 09:25 Iohexol (Omnipaque 350 Mg/ml) 100 ml 1X ONCE IV 10/23/20 10:30 10/23/20 10:36 DC 10/23/20 10:39 Allergies: Allergies: Allergies Coded Allergies Type Severity Reaction Last Updated Verified naproxen Allergy Intermediate 10/23/20 Yes Physical Exam: PE: Constitutional: No acute distress, non-toxic appearance. Coughing at the bedside. HENT: Atraumatic, bilateral external ears normal, nose normal. Eyes: PERRLA, EOMI, conjunctiva normal, no discharge. Neck: Normal range of motion, supple, no stridor. Cardiovascular: Heart rate tachycardic on exam. 2+ radial pulses Lungs & Thorax: No respiratory distress, symmetrical expansion. Bilateral breath sounds clear to auscultation Abdomen: Soft, no tenderness Skin: Warm, dry. Extremities: No tenderness, no cyanosis, ROM intact, no edema. Neurologic: Alert and oriented X 3, normal motor function, normal sensory function, no focal deficits noted. Non ataxic gait. GCS 15. Psychologic: Affect normal, judgment normal, mood normal. Current Patient Data: Labs: Laboratory Tests Test 10/23/20 09:20 White Blood Count 12.8 x10^3/uL (4.0-11.0) H Red Blood Count 4.89 x10^6/uL (4.30-5.70) Hemoglobin 13.9 g/dL (13.0-17.5) Hematocrit 43.3 % (39.0-53.0) Mean Corpuscular Volume 89 fL (79-100) Mean Corpuscular Hemoglobin 28 pg (25-35) Mean Corpuscular Hemoglobin Concent 32 g/dL (31-37) Red Cell Distribution Width 14.1 % (11.5-14.5) Platelet Count 268 x10^3/uL (140-400) Neutrophils (%) (Auto) 72 % (31-73) Lymphocytes (%) (Auto) 17 % (24-48) L Monocytes (%) (Auto) 11 % (0-9) H Eosinophils (%) (Auto) 0 % (0-3) Basophils (%) (Auto) 0 % (0-3) Neutrophils # (Auto) 9.2 x10^3uL (1.8-7.7) H Lymphocytes # (Auto) 2.1 x10^3/uL (1.0-4.8) Monocytes # (Auto) 1.4 x10^3/uL (0.0-1.1) H Eosinophils # (Auto) 0.0 x10^3/uL (0.0-0.7) Basophils # (Auto) 0.1 x10^3/uL (0.0-0.2) Prothrombin Time 10.4 SEC (9.4-11.4) Prothrombin Time INR 1.0 (0.9-1.1) Activated Partial Thromboplast Time 27 SEC (23-33) D-Dimer (Thu) 0.62 mg/L (0.00-0.50) H Sodium Level 135 mmol/L (136-145) L Potassium Level 4.4 mmol/L (3.5-5.1) Chloride Level 100 mmol/L (98-107) Carbon Dioxide Level 26 mmol/L (21-32) Anion Gap 9 (6-14) Blood Urea Nitrogen 9 mg/dL (8-26) Creatinine 1.3 mg/dL (0.7-1.3) Estimated GFR (Cockcroft-Gault) 76.9 Glucose Level 99 mg/dL (70-99) Calcium Level 8.8 mg/dL (8.5-10.1) Troponin I Quantitative < 0.017 ng/mL (0-0.055) OC-Nab-O-Type Natriuretic Peptide 386 pg/mL (0-124) H Vital Signs: Vital Signs Date Time Temp Pulse Resp B/P (MAP) Pulse Ox O2 Delivery O2 Flow Rate FiO2 10/23/20 08:15 100.6 122 18 158/109 97 Room Air EKG: EKG: Sinus tachycardia rate of 108, no ST-T wave changes, no ectopic beats, normal axis, normal AR, QRS, and QTc intervals. Impression: Sinus tachycardia, otherwise normal EKG interpreted by Samir george D.O. Radiology/Procedures: Radiology/Procedures: PROCEDURE: PORTABLE CHEST 1V XR CHEST 1V History: Reason: chest pain / Spl. Instructions: / History: Comparison: August 02, 2019 Findings: Mild ill-defined bibasilar opacities. No pleural effusion. No pneumothorax. Normal heart size. Impression: 1. Mild ill-defined bibasilar opacities, may represent atelectasis or developing infiltrates. Electronically signed by: Ovi Harris DO (10/23/2020 9:24 AM) EXAM: CT ANGIOGRAPHY OF THE CHEST WITH AND WITHOUT CONTRAST. HISTORY: Elevated d-dimer, chest pain. TECHNIQUE: Computed tomographic angiography of the chest was performed before and after the intravenous administration of iodinated contrast. 3-D maximum intensity projections were also performed. One or more of the following individualized dose reduction techniques were utilized for this examination: 1. Automated exposure control. 2. Adjustment of the mA and/or kV according to patient size. 3. Use of iterative reconstruction technique. COMPARISON: None. FINDINGS: Images of the upper abdomen reveal no acute abnormality. Bone windows reveal no suspicious lesions. No pulmonary emboli are identified. There is no aortic dissection or aneurysm. There is groundglass opacity and some consolidation throughout the posterior segment of the left lower lobe consistent with pneumonia. Prominent subcarinal and left hilar lymph nodes are most likely reactive in the setting. There is no pleural or pericardial effusion. The heart is not enlarged. IMPRESSION: 1. Left lower lobe pneumonia. Prominent mediastinal lymph nodes are likely reactive in this setting. 2. No pulmonary embolism. Electronically signed by: Noé Hidalgo MD (10/23/2020 11:13 AM) Heart Score: C/O Chest Pain: Yes HEART Score for Chest Pain: HEART Score for Chest Pain Response (Comments) Value History Slighlty/Non-Suspicious 0 ECG Normal 0 Age < 45 0 Risk Factors 1 or 2 Risk Factors 1 Troponin < Normal Limit 0 Total 1 Course & Med Decision Making: Course & Med Decision Making Patient with evidence for a bacterial pneumonia with a consolidation in the left lung on CTA as above. He was tested for Covid which is pending at this time. He was tachycardic upon admission with improvement in his heart rate to the high 90s with fluids. He was given antipyretic also with improvement. The patient d enies recent antibiotic use (including IV antibiotics), hospitalizations more than 48 hours within the last 3 months. He was started on ceftriaxone and azithromycin for community-acquired pneumonia and will be admitted to the hospital Discussed case with Dr. Gaytan at 1125 who will admit the patient to the floor. Departure Departure: Impression: Primary Impression: Community acquired pneumonia Disposition: ADMITTED INPATIENT Admitting Physician: Ladan Gaytan Condition: STABLE Referrals: FLORENCE HAN (PCP) SAMIR ELIZONDO DO Oct 23, 2020 08:52
[2020-10-23] MEDS ORDERED: ONDANSETRON PF 4 MG/2 ML VIAL. ONE (09:03)
--- NOTE | 2020-10-23 09:22 | EKG ---
[address] [address] Test Date: 2020-10-23 Test Time: 08:35:03 Pat Name: SCOOBY HUNTER Department: Room: Gender: M Nursing Tech: : 1985 Requested By: SAMIR ELIZONDO Order Number: [id number] Reading MD: Measurements Intervals [place] Rate: 108 P: 57 DE: 112 QRS: 55 QRSD: 76 T: 57 QT: 318 QTc: 430 Interpretive Statements SINUS TACHYCARDIA OTHERWISE NORMAL ECG RI6.02 No previous ECG available for comparison
--- NOTE | 2020-10-23 09:26 | RAD ---
XR CHEST 1V History: Reason: chest pain / Spl. Instructions: / History: Comparison: August 02, 2019 Findings: Mild ill-defined bibasilar opacities. No pleural effusion. No pneumothorax. Normal heart size. Impression: 1. Mild ill-defined bibasilar opacities, may represent atelectasis or developing infiltrates. Electronically signed by: Ovi Harris DO (10/23/2020 9:24 AM) [id number]
[2020-10-23 09:52] LABS: BASO # 0.1 x10^3/uL (0.0-0.2); BASO % 0 % (0-3); EOS % 0 % (0-3); HEMATOCRIT 43.3 % (39.0-53.0); HEMOGLOBIN 13.9 g/dL (13.0-17.5); LYMPH # 2.1 x10^3/uL (1.0-4.8); LYMPH % 17 % (24-48); MEAN CORPUSCULAR HEMOGLOBIN 28 pg (25-35); MEAN CORPUSCULAR HGB CONC 32 g/dL (31-37); MEAN CORPUSCULAR VOLUME 89 fL (79-100); MONO # 1.4 x10^3/uL (0.0-1.1); MONO % 11 % (0-9); NEUT # 9.2 x10^3uL (1.8-7.7); NEUT % 72 % (31-73); PLATELET COUNT 268 x10^3/uL (140-400); RED BLOOD COUNT 4.89 x10^6/uL (4.30-5.70); RED CELL DISTRIBUTION WIDTH 14.1 % (11.5-14.5); WHITE BLOOD COUNT 12.8 x10^3/uL (4.0-11.0)
[2020-10-23 10:04] LABS: CALCIUM 8.8 mg/dL (8.5-10.1); CREATININE 1.3 mg/dL (0.7-1.3); GFR 76.9; POTASSIUM 4.4 mmol/L (3.5-5.1)
[2020-10-23] MEDS ORDERED: IOHEXOL 350 MG/ML 100 ML VIAL. IV ONE (10:30)
--- NOTE | 2020-10-23 11:15 | RAD ---
EXAM: CT ANGIOGRAPHY OF THE CHEST WITH AND WITHOUT CONTRAST. HISTORY: Elevated d-dimer, chest pain. TECHNIQUE: Computed tomographic angiography of the chest was performed before and after the intraveno us administration of iodinated contrast. 3-D maximum intensity projections were also performed. One o r more of the following individualized dose reduction techniques were utilized for this examination: 1. Automated exposure control. 2. Adjustment of the mA and/or kV according to patient size. 3. Use of iterative reconstruction technique. COMPARISON: None. FINDINGS: Images of the upper abdomen reveal no acute abnormality. Bone windows reveal no suspicious lesions. No pulmonary emboli are identified. There is no aortic dissection or aneurysm. There is groundglass opacity and some consolidation throughout the posterior segment of the left lowe r lobe consistent with pneumonia. Prominent subcarinal and left hilar lymph nodes are most likely uma ctive in the setting. There is no pleural or pericardial effusion. The heart is not enlarged. IMPRESSION: 1. Left lower lobe pneumonia. Prominent mediastinal lymph nodes are likely reactive in this setting. 2. No pulmonary embolism. Electronically signed by: Noé Hidalgo MD (10/23/2020 11:13 AM) [facility]
[2020-10-23] MEDS ORDERED: IV NORMAL SALINE 100ML 100 ML ONE (11:29)
[2020-10-23] MEDS ORDERED: IV NORMAL SALINE 250ML 250 ML ONE (11:29)
[2020-10-23] MEDS ORDERED: AZITHROMYCIN 500 MG VIAL. IV ONE (11:29)
[2020-10-23] MEDS ORDERED: AZITHROMYCIN 500 MG in IV NORMAL SALINE 250ML 250 ML IV ONE (11:30)
[2020-10-23 15:30] VITALS: BP 149/85
[2020-10-23] MEDS ORDERED: LISINOPRIL 5 MG TABLET. PO ONE (16:15)
[2020-10-23] MEDS: ACETAMINOPHEN 325 MG TABLET PO PRN ×2 (16:29→23:22)
[2020-10-23] MEDS: oxyCODONE IR 5 MG TABLET PO PRN ×2 (16:30→23:23)
[2020-10-23] MEDS ORDERED: ENOXAPARIN 40 MG/0.4 ML SYRINGE. SQ SCH (17:00)
--- NOTE | 2020-10-23 17:02 | HP ---
ADMIT DATE: 10/23/2020 HISTORY OF PRESENT ILLNESS: The patient is a 35-year-old -[place] male patient who presented to the Emergency Room with complaint of fatigue, chills, chest pain, cough, shortness of breath, headache, as well as diarrhea. All the symptoms started about 4 days ago. He had also had fever today. His chest pain is present when he breathes in deeply, but not there at rest. He admits to some chills. He has treated his symptoms. He has been taking DayQuil and ibuprofen 800 mg twice a day without any improvement. However, he did complete his COVID vaccination, took 2 Moderna shots. His pain is mostly pleuritic in nature, does not radiate. He denied any history of blood clots in his legs or his lungs. He did have history of what seemed to be a pericardial effusion that was drained about a year ago at [facility]. He was extensively investigated in the Emergency Room and has had lab work that showed he has a mild leukocytosis with a white cell count 12,800. His D-dimer was slightly elevated at 0.62. His chemistry was mostly unremarkable. He did have chest x-ray that showed mild ill-defined bibasilar opacities, may represent atelectasis or developing infiltrate; however, CT angio of the chest showed that the patient has left lower lobe pneumonia, prominent lymph nodes are likely reactive in this setting, no pulmonary embolism. The patient was admitted, has also some ground glass opacities and some consolidation throughout the posterior segment of the left lower lobe consistent with pneumonia. There is no pleural or pericardial effusion. The heart is not enlarged. The patient was admitted with left lower lobe pneumonia and was kept in isolation for possible COVID-19 infection, although has already received his vaccine and completed his vaccination. PAST MEDICAL HISTORY: Significant for hypertension. He also has what seemed to be a pericardial effusion. PAST SURGICAL HISTORY: Significant for pericardiocentesis. ALLERGIES: HE IS ALLERGIC TO NAPROXEN. MEDICATIONS: He was on DayQuil and ibuprofen, both [id number]. FAMILY HISTORY: He is an only child. Both parents are alive. His father is a 54-year-old and has hypertension. Mother is alive and is 57 years old and has hypertension. SOCIAL HISTORY: He is single, has no children. He smokes cigars, drinks alcohol socially. Although he denied any drug use to me, he apparently has a history of cocaine and methamphetamine. PHYSICAL EXAMINATION: GENERAL: On arrival to the emergency room, the patient looked well and was clearly in no apparent respiratory distress. No pallor, jaundice, cyanosis or thyromegaly. No jugular venous distention. No lower limb edema. VITAL SIGNS: His heart rate was 96, blood pressure was 162/101, temperature was 99.7, respiratory rate was 18 and oxygen saturation was 96% on room air. HEAD, EYES, EARS, NOSE, AND THROAT: Normocephalic, atraumatic. NECK: Supple. HEART: Normal first and second heart sounds, no gallop or murmur. CHEST: Shows central trachea, equal bilateral chest expansion and air entry, vesicular breath sounds with crepitation mostly on the left side posteriorly, has very few scattered rhonchi. ABDOMEN: Distended, soft, nontender. NEUROLOGIC: He was awake, alert, responding appropriately. All cranial nerves intact. He ambulates without assistance or assistive devices. LABORATORY DATA: Showed a white cell count 12,800, hemoglobin 14, hematocrit 43, MCV 89 and platelet count 268,000 with normal manual differential. His chemistry showed a serum sodium 135, potassium 4.4, chloride 100, bicarbonate 26, anion gap of 9, BUN 9, creatinine 1.3. Estimated GFR was 77 mL per minute. His glucose was 99, calcium was 8.8. Had in fact 3 sets of cardiac enzymes that ruled out myocardial infarction. His beta natriuretic was only 386. His prothrombin time, INR and APTT are normal. D-dimer was slightly elevated at 0.62. His chest x-ray showed mild ill-defined bibasilar opacities that may represent atelectasis or developing infiltrate. CT angio of the chest showed the patient has images of the upper abdomen revealed no acute abnormality. Bone windows reveal no suspicious lesions. No pulmonary emboli identified. There is no aortic dissection or aneurysm. There is ground glass opacity and some consolidation throughout the posterior segment of the left lower lobe consistent with pneumonia; prominent subcarinal and left hilar lymph nodes are most likely reactive in this setting. There is no pleural or pericardial effusion. The heart is not enlarged. ASSESSMENT AND PLAN: 1. The patient was admitted with a diagnosis of community-acquired pneumonia. 2. Hypertension. 3. The patient was put as a person under investigation, although he has completed his COVID vaccination. He does have a history of apparently cocaine and amphetamine abuse and smokes cigars. My plan is to continue with IV antibiotic in the form of ceftriaxone as well as Zithromax. Continue with pain management, start him also on perhaps amlodipine or lisinopril and follow response on a daily basis. ABIGAIL DR: Asael TID: [id number]
[2020-10-23] MEDS: ENOXAPARIN 40 MG/0.4 ML SYRINGE. SQ SCH (20:14)
[2020-10-23 20:27] VITALS: BP 143/91
[2020-10-24 05:14] VITALS: BP 128/80
[2020-10-24 07:05] LABS: BASO % 0 % (0-3); EOS # 0.1 x10^3/uL (0.0-0.7); EOS % 1 % (0-3); HEMATOCRIT 40.1 % (39.0-53.0); LYMPH # 2.3 x10^3/uL (1.0-4.8); LYMPH % 20 % (24-48); MEAN CORPUSCULAR HEMOGLOBIN 28 pg (25-35); MEAN CORPUSCULAR HGB CONC 33 g/dL (31-37); MEAN CORPUSCULAR VOLUME 87 fL (79-100); MONO # 1.8 x10^3/uL (0.0-1.1); MONO % 15 % (0-9); NEUT # 7.6 x10^3uL (1.8-7.7); NEUT % 65 % (31-73); PLATELET COUNT 252 x10^3/uL (140-400); RED BLOOD COUNT 4.59 x10^6/uL (4.30-5.70); RED CELL DISTRIBUTION WIDTH 13.9 % (11.5-14.5); WHITE BLOOD COUNT 11.7 x10^3/uL (4.0-11.0)
[2020-10-24 07:23] LABS: ALBUMIN/GLOBULIN RATIO 0.7 (1.0-1.7); CALCIUM 8.5 mg/dL (8.5-10.1); CREATININE 1.2 mg/dL (0.7-1.3); GFR 84.4; POTASSIUM 4.3 mmol/L (3.5-5.1); TOTAL BILIRUBIN 0.3 mg/dL (0.2-1.0); TOTAL PROTEIN 7.2 g/dL (6.4-8.2)
[2020-10-24] MEDS: LISINOPRIL 10 MG TABLET PO SCH (08:28)
[2020-10-24] MEDS: ACETAMINOPHEN 325 MG TABLET PO PRN ×2 (08:28→16:31)
[2020-10-24] MEDS: AZITHROMYCIN 250 MG TABLET. PO SCH (08:28)
[2020-10-24] MEDS: oxyCODONE IR 5 MG TABLET PO PRN ×3 (08:29→21:46)
[2020-10-24 10:30] VITALS: BP 128/84
[2020-10-24 15:03] VITALS: BP 135/89
[2020-10-24 20:17] VITALS: BP 153/92
[2020-10-24] MEDS: ENOXAPARIN 40 MG/0.4 ML SYRINGE. SQ SCH (21:46)
[2020-10-24] MEDS: LACTOBACILLUS RHAMNOSUS GG 1 CAPSULE. PO SCH (21:46)
--- NOTE | 2020-10-24 22:48 | PN ---
DATE: 10/24/2020 SUBJECTIVE: The patient is sitting on edge of the bed comfortably, in no apparent distress. He continued to complain of a headache and also chest pain, particularly when he coughs or takes a deep breath. Denied any blurring of vision, tingling, or numbness. PHYSICAL EXAMINATION: GENERAL: When I examined him, he looked well and was clearly in no apparent respiratory distress. There was no pallor, jaundice, cyanosis, or thyromegaly. No jugular venous distention. No lower limb edema. VITAL SIGNS: His heart rate was 91, blood pressure is 128/84, temperature was 98.4, respiratory rate 20, and oxygen saturation was 96% on room air. HEAD, EYES, EARS, NOSE, AND THROAT: Normocephalic, atraumatic. NECK: Supple. HEART: Normal first and second heart sounds, no gallop or murmur. CHEST: Shows central trachea, equal bilateral expansion, air entry, vesicular breath sounds with crepitation mostly in the left side posteriorly. I could not appreciate any rhonchi. ABDOMEN: Distended, soft, and nontender. NEUROLOGIC: He was grossly intact. His intake and output are incompletely recorded. LABORATORY DATA: This morning showed a white cell count of 11,700, hemoglobin 13, hematocrit 40, MCV 87 and platelet count 252,000. Serum sodium was 135, potassium 4.3, chloride 102, bicarbonate 26, anion gap of 7, BUN 9, creatinine 1.2. Estimated GFR was 84 mL per minute. His glucose was 102, calcium 8.5. Total bilirubin, AST, ALT, alkaline phosphatase were normal. Total protein was 7.2, albumin was 3. His D-dimer was 0.62. ASSESSMENT: 1. Community-acquired pneumonia. 2. Hypertension. 3. The patient is continued to be a person under investigation, although he has completed his COVID vaccination, or has a history of cocaine and amphetamine abuse and he continues to smoke cigars. PLAN: To continue IV antibiotic in the form of ceftriaxone as well as Zithromax. Continue with pain management. I did start him on lisinopril and his blood pressure is definitely much improved compared to when he was admitted. BRYNN DR: Asael TID: [id number]
[2020-10-24 23:56] VITALS: BP 129/85
[2020-10-25 06:05] VITALS: BP 130/83
[2020-10-25] MEDS: oxyCODONE IR 5 MG TABLET PO PRN ×4 (06:35→20:23)
[2020-10-25] MEDS: AZITHROMYCIN 250 MG TABLET. PO SCH (09:14)
[2020-10-25] MEDS: LACTOBACILLUS RHAMNOSUS GG 1 CAPSULE. PO SCH ×2 (09:14→20:22)
[2020-10-25] MEDS: LISINOPRIL 10 MG TABLET PO SCH (09:14)
[2020-10-25 16:08] VITALS: BP 133/90
[2020-10-25] MEDS: ENOXAPARIN 40 MG/0.4 ML SYRINGE. SQ SCH (20:22)
[2020-10-25 20:31] VITALS: BP 117/80
[2020-10-25] MEDS ORDERED: traZODone 50 MG TABLET. PO SCH (21:00)
--- NOTE | 2020-10-25 22:52 | PN ---
DATE: 10/25/2020 SUBJECTIVE: The patient is resting slightly propped up. Continued to have complaint of cough, chest pain, headache. Cough is mostly dry hacking. PHYSICAL EXAMINATION: GENERAL: When I examined him, he looked well and was clearly in no respiratory distress. There was no pallor, jaundice, cyanosis or thyromegaly. No jugular venous distention. No limb edema. VITAL SIGNS: His heart rate was 90, blood pressure was 130/83, temperature was 98.5, respiratory rate 20, and oxygen saturation was 96%. HEAD, EYES, EARS, NOSE, AND THROAT: Showed normocephalic, atraumatic. NECK: Supple. HEART: Normal first and second heart sounds, no gallop, rub or murmur. CHEST: Shows central trachea, equal bilateral chest expansion, air entry, vesicular breath sounds with crepitation mostly on the left side posteriorly. I could not appreciate any rhonchi. ABDOMEN: Distended, soft, nontender. NEUROLOGIC: He was grossly intact. His intake was 3150, output was 1475. LABORATORY DATA: He has no lab work done this morning. ASSESSMENT: 1. Community-acquired pneumonia. 2. Hypertension. 3. The patient turned out to be negative for coronavirus and has already been vaccinated. 4. He has a history of cocaine and amphetamine abuse. 5. He continued to smoke cigars. PLAN: To continue with IV antibiotic as well as Zithromax. Continue with pain management. I did start him on lisinopril and his blood pressure is definitely well controlled. He will be discharged home tomorrow to continue treatment as an outpatient. KARIN/WU DR: Asael TID: [id number]
[2020-10-26] MEDS: oxyCODONE IR 5 MG TABLET PO PRN ×2 (05:54→11:36)
[2020-10-26 05:55] VITALS: BP 102/63
[2020-10-26 06:19] LABS: BASO # 0.1 x10^3/uL (0.0-0.2); BASO % 1 % (0-3); EOS # 0.2 x10^3/uL (0.0-0.7); EOS % 3 % (0-3); HEMATOCRIT 43.5 % (39.0-53.0); HEMOGLOBIN 14.5 g/dL (13.0-17.5); LYMPH # 2.2 x10^3/uL (1.0-4.8); LYMPH % 31 % (24-48); MEAN CORPUSCULAR HEMOGLOBIN 29 pg (25-35); MEAN CORPUSCULAR HGB CONC 33 g/dL (31-37); MEAN CORPUSCULAR VOLUME 88 fL (79-100); MONO % 14 % (0-9); NEUT # 3.8 x10^3uL (1.8-7.7); NEUT % 52 % (31-73); PLATELET COUNT 349 x10^3/uL (140-400); RED BLOOD COUNT 4.97 x10^6/uL (4.30-5.70); RED CELL DISTRIBUTION WIDTH 13.9 % (11.5-14.5); WHITE BLOOD COUNT 7.3 x10^3/uL (4.0-11.0)
[2020-10-26 06:28] LABS: CALCIUM 9.1 mg/dL (8.5-10.1); CREATININE 1.1 mg/dL (0.7-1.3); GFR 93.3; POTASSIUM 4.7 mmol/L (3.5-5.1)
[2020-10-26] MEDS: LACTOBACILLUS RHAMNOSUS GG 1 CAPSULE. PO SCH (08:06)
[2020-10-26] MEDS: AZITHROMYCIN 250 MG TABLET. PO SCH (08:06)
[2020-10-26] MEDS: LISINOPRIL 10 MG TABLET PO SCH (08:06)
[2020-10-26 10:28] VITALS: BP 109/73
[2020-10-26] MEDS ORDERED: LISI10TA16 PO (14:25)
[2020-10-26] MEDS ORDERED: CEFD300C PO (14:25)
[2020-10-26] MEDS ORDERED: AZIT250T PO (14:25)
[2020-10-26] MEDS ORDERED: HYDR-2155 PO (14:26)
== END 2020-10-26 15:05 | disposition home or self-care (01) | DRG 871 ==
LOC: ER 08:13 → 1 SOUTH 14:35
PROVIDERS: ADMIT Internal Medicine; ATTEND Internal Medicine
DX: A41.9 Sepsis, unspecified organism (principal); J18.9 Pneumonia, unspecified organism; Z20.822 Contact with and (suspected) exposure to COVID-19; I10 Essential (primary) hypertension; F17.290 Nicotine dependence, other tobacco product, uncomplicated; Z78.9 Other specified health status; Z88.6 Allergy status to analgesic agent; Z82.49 Family history of ischemic heart disease and other diseases of the circulatory system
CPT/HCPCS: 36415; 71045; 71275; 80048; 80053; 83605; 83880; 84484; 85025; 85379; 85610; 85730; 87040; 93005; 96361; 96365; 96366; 96367; 96375; J0456; J0696; J1650; J2765; J7050; Q9967; U0003; U0005; 99285-25; J7030

== ENCOUNTER 2020-11-24 18:20 | Emergency (ER) | payer MEDICAID ==
[~2020-11-24] VITALS: Ht 177.8 cm; Wt 115.2 kg
[~2020-11-24 18:20] MED LIST changes: +AZIT250T PO; +CEFD300C PO; +HYDR-2155 PO; +LISI10TA16 PO
--- NOTE | 2020-11-24 18:23 | PHYS DOC ---
Past History Past Medical History: No Pertinent History Additional Past Medical Histor: " fluid around heart" Past Surgical History: No Surgical History Smoking: Cigarettes Alcohol Use: Occasionally Drug Use: Cocaine, Methamphetamine General Adult HPI: HPI: ".. I think... I am having some kind of allergic reaction..."..."It started immediately after I ate Sun Butter and Grape Jelly.. ". " I got hives... and my tongue is swollen... " Patient is a 35 year old male who presents with above hx and complaints surgery reaction symptoms of tachycardia, wheezing, hives, and swollen tongue after eating Sun Butter and Grape jelly. Patient has had no other new intake of foods or meds. Patient denies any history of Rocephin. No recent travel. Did complete Covid vaccination earlier in the year. No severe ill contacts. Pt. follows with Jorge Capellan Review of Systems: Review of Systems: Constitutional: Denies fever or chills Eyes: Denies change in visual acuity HENT: Denies nasal congestion or sore throat. Swollen tongue Respiratory: Wheezing Cardiovascular: Tachycardia GI: Denies abdominal pain, nausea, vomiting, bloody stools or diarrhea : Denies dysuria Musculoskeletal: Denies back pain or joint pain Integument: Hives Neurologic: Denies headache, focal weakness or sensory changes Endocrine: Denies polyuria or polydipsia Lymphatic: Denies swollen glands Psychiatric: Denies depression or anxiety Family History: Family History: Noncontributory presentation Current Medications: Current Meds: See nursing for home meds Allergies: Allergies: Allergies Coded Allergies Type Severity Reaction Last Updated Verified naproxen Allergy Intermediate 10/23/20 Yes Physical Exam: PE: Constitutional: In acute distress, non-toxic appearance. [] HENT: Normocephalic, atraumatic, bilateral external ears normal, oropharynx moist, no oral exudates, nose normal. Swollen tongue Eyes: PERRLA, EOMI, conjunctiva normal, no discharge. [] Neck: Normal range of motion, no tenderness, supple, no stridor. [] Cardiovascular: Tachycardia heart rate regular rhythm, no murmur [] Lungs & Thorax: Bilateral breath sounds equal apex scattered wheezing auscultation [] Abdomen: Bowel sounds normal, soft, no tenderness, no masses, no pulsatile masses. [] Skin: Warm, dry, no erythema, no rash. Hives Back: No tenderness, no CVA tenderness. [] Extremities: No tenderness, no cyanosis, no clubbing, ROM intact, no edema. [] Neurologic: Alert and oriented X 3, normal motor function, normal sensory function, no focal deficits noted. [] Psychologic: Affect anxious , judgement normal, mood normal. [] EKG: EKG: [] Radiology/Procedures: Radiology/Procedures: [] Heart Score: HEART Score for Chest Pain: HEART Score for Chest Pain Response (Comments) Value History Slighlty/Non-Suspicious 0 Total 0 Risk Factors: Risk Factors: DM, Current or recent (<one month) smoker, HTN, HLP, family history of CAD, obesity. Risk Scores: Score 0 - 3: 2.5% MACE over next 6 weeks - Discharge Home Score 4 - 6: 20.3% MACE over next 6 weeks - Admit for Clinical Observation Score 7 - 10: 72.7% MACE over next 6 weeks - Early Invasive Strategies Course & Med Decision Making: Course & Med Decision Making Pertinent Labs and Imaging studies reviewed. (See chart for details) Impression: 1. Allergic reaction-suspect Sun Butter [] Dragon Disclaimer: Dragon Disclaimer: This electronic medical record was generated, in whole or in part, using a voice recognition dictation system. Departure Departure: Referrals: FLORENCE HAN (PCP) JUSTIN SANCHEZ MD Nov 24, 2020 18:23
[2020-11-24] MEDS ORDERED: ALBUTEROL SULFATE 8GM INHALER. INH ONE (18:45)
[2020-11-24] MEDS ORDERED: FAMOTIDINE 20 MG/2 ML VIAL IVP ONE (18:45)
[2020-11-24] MEDS ORDERED: methylPREDNISolone SOD SUCC PF 125 MG/2 ML VIAL. IV ONE (18:45)
[2020-11-24] MEDS ORDERED: diphenhydrAMINE 50 MG/ML VIAL IV ONE (18:45)
[2020-11-24] MEDS ORDERED: MAGNESIUM HYDROXIDE 2,400 MG/30 ML ORAL.SUSP. PO ONE (18:45)
[2020-11-24] MEDS ORDERED: IPRATRPIUM/ALBUTEROL 0.5/2.5MG 3 ML NEBU. NEB ONE (18:45)
[2020-11-24] MEDS ORDERED: IV RINGERS SOLUTION,LACTATED 1,000 ML IV SCH (18:45)
[2020-11-24 19:00] LABS: BASO % 0 % (0-3); EOS # 0.1 x10^3/uL (0.0-0.7); EOS % 1 % (0-3); HEMATOCRIT 49.5 % (39.0-53.0); HEMOGLOBIN 16.1 g/dL (13.0-17.5); LYMPH % 56 % (24-48); MEAN CORPUSCULAR HEMOGLOBIN 28 pg (25-35); MEAN CORPUSCULAR HGB CONC 33 g/dL (31-37); MEAN CORPUSCULAR VOLUME 87 fL (79-100); MONO # 0.5 x10^3/uL (0.0-1.1); MONO % 7 % (0-9); NEUT # 2.6 x10^3uL (1.8-7.7); NEUT % 36 % (31-73); PLATELET COUNT 268 x10^3/uL (140-400); RED BLOOD COUNT 5.69 x10^6/uL (4.30-5.70); RED CELL DISTRIBUTION WIDTH 14.7 % (11.5-14.5); WHITE BLOOD COUNT 7.1 x10^3/uL (4.0-11.0)
[2020-11-24 19:13] LABS: CALCIUM 8.9 mg/dL (8.5-10.1); CREATININE 1.3 mg/dL (0.7-1.3); GFR 76.9
[2020-11-24 19:21] LABS: ALBUMIN 4.1 g/dL (3.4-5.0); DIRECT BILIRUBIN 0.1 mg/dL (0.0-0.2); MAGNESIUM 1.9 mg/dL (1.8-2.4); TOTAL BILIRUBIN 0.4 mg/dL (0.2-1.0); TOTAL PROTEIN 7.8 g/dL (6.4-8.2)
[2020-11-24] MEDS ORDERED: PRED50TA PO (21:38)
[2020-11-24] MEDS ORDERED: FAMO-63 PO (21:38)
--- NOTE | 2020-11-24 21:38 | EKG ---
[address] [address] Test Date: 2020-11-24 Test Time: 18:46:19 Pat Name: SCOOBY HUNTER Department: Room: Gender: M Inventory Control Analyst: : 1985 Requested By: JUSTIN SANCHEZ Order Number: [id number] Reading MD: Measurements Intervals [place] Rate: 142 P: [place]: QRS: 51 QRSD: 72 T: 24 QT: 290 QTc: 446 Interpretive Statements SUPRAVENTRICULAR TACHYCARDIA NO SPECIFIC ECG ABNORMALITIES RI6.02 No previous ECG available for comparison
[2020-11-24 21:40] VITALS: BP 159/88
== END 2020-11-24 21:45 | disposition home or self-care (01) ==
LOC: ER 18:20
DX: T78.40XA Allergy, unspecified, initial encounter (principal); L50.9 Urticaria, unspecified; F17.210 Nicotine dependence, cigarettes, uncomplicated; F15.10 Other stimulant abuse, uncomplicated; F14.10 Cocaine abuse, uncomplicated; X58.XXXA Exposure to other specified factors, initial encounter
CPT/HCPCS: 36415; 80048; 80076; 82550; 83690; 83735; 84484; 85025; 93005; 94640; 96361; 96374; 96375; 99284; J1200; J2930; J3490; J7120; 94664

== ENCOUNTER 2021-07-05 13:26 | Emergency (ER) | payer BC ==
[~2021-07-05] VITALS: Ht 177.8 cm; Wt 120.0 kg
[~2021-07-05 13:26] MED LIST changes: +FAMO-63 PO; +PRED50TA PO
--- NOTE | 2021-07-05 13:52 | PHYS DOC ---
Past History Past Medical History: No Pertinent History Additional Past Medical Histor: " fluid around heart" (KAREN BRADY APRN) Past Surgical History: No Surgical History (KAREN BRADY APRN) Smoking: Cigarettes Alcohol Use: Occasionally Drug Use: Cocaine, Methamphetamine (KAREN BRADY APRN) General Adult EDM: Chief Complaint: SHORTNESS OF BREATH HPI: HPI: Patient is a 35-year-old male who presents to the emergency department for shortness of breath and a cough. Patient was seen at his primary care provider's office and diagnosed with bronchitis and discharged home with Augmentin. Patient reports at that time on Monday they discontinued his lisinopril and added chlorthalidone for his hypertension. Patient reports he has been taking his medications as directed. He states that he is scheduled to have an outpatient chest x-ray but infill enough to get one. Patient denies fevers, nausea, vomiting, sick exposures, chest pain. Patient's oxygen saturation is 98% on room air. He is tachycardic with a heart rate of 130 bpm. He is hypertensive at 152/106. He reports having a negative Covid test in his office. (KAREN BRADY APRN) Review of Systems: Review of Systems: Constitutional: See HPI Respiratory: See HPI Cardiovascular: See HPI GI: See HPI Musculoskeletal: Reports body aches (KAREN BRADY APRN) Allergies: Allergies: Allergies Coded Allergies Type Severity Reaction Last Updated Verified naproxen Allergy Intermediate 07/05/21 Yes crab Allergy Unknown swelling 07/05/21 Yes oxycodone Allergy Unknown hives, vomiting 07/05/21 Yes sunflower oil Allergy Unknown swelling hives 07/05/21 Yes tomato Allergy Unknown swelling, hives 07/05/21 Yes (KAREN BRADY APRN) Physical Exam: PE: Constitutional: Well developed, well nourished, no acute distress, non-toxic appearance. [] HENT: Normocephalic, atraumatic, bilateral external ears normal, oropharynx moist, no oral exudates, nose normal. [] Eyes: PERRL, EOMI, conjunctiva normal, no discharge. [] Neck: Normal range of motion, no tenderness, supple, no stridor. [] Cardiovascular:Heart rate tachycardic rhythm, no murmur [] Lungs & Thorax: Coarseness noted in lower lobes Abdomen: Bowel sounds normal, soft, no tenderness, no masses, no pulsatile masses. [] Skin: Warm, dry, no erythema, no rash. [] Back: No tenderness, normal range of motion Extremities: No tenderness, no cyanosis, no clubbing, ROM intact, no edema. [] Neurologic: Alert and oriented X 3, normal motor function, normal sensory function, no focal deficits noted. [] Psychologic: Affect normal, judgement normal, mood normal. [] (KAREN BRADY APRN) Current Patient Data: Labs: Laboratory Tests Test 07/05/21 13:47 07/05/21 14:14 Troponin I High Sensitivity 15 ng/L White Blood Count 9.1 x10^3/uL Red Blood Count 5.69 x10^6/uL Hemoglobin 16.3 g/dL Hematocrit 50.1 % Mean Corpuscular Volume 88 fL Mean Corpuscular Hemoglobin 29 pg Mean Corpuscular Hemoglobin Concent 33 g/dL Red Cell Distribution Width 15.0 % Platelet Count 279 x10^3/uL Neutrophils (%) (Auto) 62 % Lymphocytes (%) (Auto) 28 % Monocytes (%) (Auto) 9 % Eosinophils (%) (Auto) 1 % Basophils (%) (Auto) 1 % Neutrophils # (Auto) 5.6 x10^3uL Lymphocytes # (Auto) 2.6 x10^3/uL Monocytes # (Auto) 0.8 x10^3/uL Eosinophils # (Auto) 0.0 x10^3/uL Basophils # (Auto) 0.0 x10^3/uL Sodium Level 140 mmol/L Potassium Level 4.2 mmol/L Chloride Level 102 mmol/L Carbon Dioxide Level 24 mmol/L Anion Gap 14 Blood Urea Nitrogen 15 mg/dL Creatinine 1.2 mg/dL Estimated GFR (Cockcroft-Gault) 84.4 BUN/Creatinine Ratio 13 Glucose Level 101 mg/dL Calcium Level 9.2 mg/dL Total Bilirubin 0.3 mg/dL Aspartate Amino Transf (AST/SGOT) 40 U/L Alanine Aminotransferase (ALT/SGPT) 59 U/L Alkaline Phosphatase 81 U/L Total Protein 8.1 g/dL Albumin 4.1 g/dL Albumin/Globulin Ratio 1.0 Current Medications Medications (Trade) Dose Ordered Sig/Ayden Route PRN Reason Start Time Stop Time Status Last Admin Dose Admin Sodium Chloride 1,000 ml @ 1,000 mls/hr 1X ONCE IV 07/05/21 14:00 07/05/21 14:59 DC 07/05/21 14:00 Vital Signs: Vital Signs Date Time Temp Pulse Resp B/P (MAP) Pulse Ox O2 Delivery O2 Flow Rate FiO2 07/05/21 13:35 98.8 134 20 152/106 (121) 99 (KAREN BRADY APRN) EKG: EKG: EKG performed by ER staff at 1407 shows sinus tach with a rate of 127, QTc is 482, no STEMI read by Dr. Mcqueen at 1409. [] (KAREN BRADY APRN) Radiology/Procedures: Radiology/Procedures: []PROCEDURE: PORTABLE CHEST 1V XR CHEST 1V History: Short of air, cough Comparison: 10/23/2020, 08/02/2019 Technique: AP radiograph of the chest. Findings: The lungs are adequately and symmetrically inflated. No airspace consolidation, pleural effusion or pneumothorax. The cardiomediastinal silhouette and pulmonary vasculature are within normal limits. No acute osseous abnormality. Soft tissues are unremarkable. Impression: 1. No acute cardiopulmonary process. Electronically signed by: Aravind Fowler MD (07/05/2021 2:18 PM) [id number] DICTATED AND SIGNED BY: ARAVIND FOWLER MD DATE: 07/05/21 141 CC: KAREN BRADY APRN; ALEC DIAZ MD ~ (KAREN BRADY APRN) Heart Score: C/O Chest Pain: No Risk Factors: Risk Factors: DM, Current or recent (<one month) smoker, HTN, HLP, family history of CAD, obesity. Risk Scores: Score 0 - 3: 2.5% MACE over next 6 weeks - Discharge Home Score 4 - 6: 20.3% MACE over next 6 weeks - Admit for Clinical Observation Score 7 - 10: 72.7% MACE over next 6 weeks - Early Invasive Strategies (KAREN BRADY APRN) Course & Med Decision Making: Course & Med Decision Making Pertinent Labs and Imaging studies reviewed. (See chart for details) [] Patient resents to the emergency department for cough and shortness of breath. Patient was placed on Augmentin and chlorthalidone on Monday. He is tachycardic with a heart rate of 130 bpm and hypertensive at 152/106. Patient denies any chest pain. Work-up in the ER consisted of blood work including troponin, EKG and chest x-ray. His tachycardia was treated with a liter of IV fluids. Patient's blood work was unremarkable. He did not have an elevated troponin. Following treatment in the emergency department his heart rate has improved to 110. He has an elevated bp but is asymptomatic. He has no symptoms of end organ damage. He is advised to continue taking bp meds as well as augmentin, advised to take tylenol and ibuprofen and increase fluids. I discussed with patient all findings and diagnostic testing as well as the need to follow-up with PCP for further evaluation and treatment or return to the ER if any new or worsening symptoms. Strict return precautions were also discussed at length. Patient voiced understanding and agreement with the plan. Patient is hemodynamically stable at the time of disposition. (KAREN BRADY APRN) Dragon Disclaimer: Dragon Disclaimer: This electronic medical record was generated, in whole or in part, using a voice recognition dictation system. (KAREN BRADY APRN) Departure Departure: Impression: Primary Impression: Cough Disposition: 01 HOME / SELF CARE / HOMELESS Condition: GOOD Referrals: ALEC DIAZ MD (PCP) Patient Instructions: Cough, Adult Additional Instructions: You were seen in the emergency department today for cough and shortness of breath. Your chest x-ray did not show any acute findings and your blood work was unremarkable. Please continue taking the antibiotic that you are prescribed by your primary care provider. Please continue to take your blood pressure med ication as directed and monitor your blood pressure twice a day. You are being discharged home with cough medication. Use this as directed. You can take Tylenol and ibuprofen at home for pain. Increase your fluids and rest. Please follow-up with your primary care provider tomorrow regarding your ER visit regarding your elevated blood pressure readings. Return to the emergency department if you develop chest pain, shortness of breath, high fevers refractory to treatment, intractable nausea or vomiting. Scripts Benzonatate (BENZONATATE) 100 Mg Capsule 1 CAP PO TID for cough for 7 Days, #21 CAP 0 Refills Prov: KAREN BRADY APRN 07/05/21 Attending Signature Attending Signature I have reviewed the PA/HEMODIALYSIS CHARGE NURSE's note and plan of care. I was available for consultation as needed during the patient's visit in the emergency department. I agree with the clinical impression, plan, and disposition. (BRITTANY MCQUEEN DO) KAREN BRADY TWISTING OPERATOR Jul 05, 2021 13:52 BRITTANY MCQUEEN DO Jul 06, 2021 10:46
[2021-07-05] MEDS ORDERED: IV NORMAL SALINE 1,000ML 1,000 ML IV ONE (14:00)
--- NOTE | 2021-07-05 14:21 | RAD ---
XR CHEST 1V History: Short of air, cough Comparison: 10/23/2020, 08/02/2019 Technique: AP radiograph of the chest. Findings: The lungs are adequately and symmetrically inflated. No airspace consolidation, pleural effusion or p neumothorax. The cardiomediastinal silhouette and pulmonary vasculature are within normal limits. No acute osseous abnormality. Soft tissues are unremarkable. Impression: 1. No acute cardiopulmonary process. Electronically signed by: Aravind Jain MD (07/05/2021 2:18 PM) [id number]
[2021-07-05 14:44] LABS: BASO % 1 % (0-3); EOS % 1 % (0-3); HEMATOCRIT 50.1 % (39.0-53.0); HEMOGLOBIN 16.3 g/dL (13.0-17.5); LYMPH # 2.6 x10^3/uL (1.0-4.8); LYMPH % 28 % (24-48); MEAN CORPUSCULAR HEMOGLOBIN 29 pg (25-35); MEAN CORPUSCULAR HGB CONC 33 g/dL (31-37); MEAN CORPUSCULAR VOLUME 88 fL (79-100); MONO # 0.8 x10^3/uL (0.0-1.1); MONO % 9 % (0-9); NEUT # 5.6 x10^3uL (1.8-7.7); NEUT % 62 % (31-73); PLATELET COUNT 279 x10^3/uL (140-400); RED BLOOD COUNT 5.69 x10^6/uL (4.30-5.70); WHITE BLOOD COUNT 9.1 x10^3/uL (4.0-11.0)
[2021-07-05 14:58] LABS: CALCIUM 9.2 mg/dL (8.5-10.1); CREATININE 1.2 mg/dL (0.7-1.3); GFR 84.4; POTASSIUM 4.2 mmol/L (3.5-5.1)
[2021-07-05 15:04] LABS: ALBUMIN 4.1 g/dL (3.4-5.0); TOTAL BILIRUBIN 0.3 mg/dL (0.2-1.0); TOTAL PROTEIN 8.1 g/dL (6.4-8.2)
[2021-07-05] MEDS ORDERED: BENZ-8 PO (15:18)
[2021-07-05 15:27] VITALS: BP 170/100
--- NOTE | 2021-07-05 19:31 | EKG ---
[address] [address] Test Date: 2021-07-05 Test Time: 14:07:33 Pat Name: SCOOBY HUNTER Department: Room: Gender: M Soc Analyst: : 1985 Requested By: KAREN BRADY Order Number: [id number] Reading MD: Brenton Lam Measurements Intervals [place] Rate: 127 P: 48 [place]: 110 QRS: 49 QRSD: 80 T: 63 QT: 328 QTc: 482 Interpretive Statements SINUS TACHYCARDIA Electronically Signed On 07-09-2021 13:49:57 CDT by Brenton Lam
== END 2021-07-05 15:28 | disposition home or self-care (01) ==
LOC: ER 13:26
DX: R05.9 Cough, unspecified (principal); R06.02 Shortness of breath; R00.0 Tachycardia, unspecified; F17.210 Nicotine dependence, cigarettes, uncomplicated
CPT/HCPCS: 36415; 71045; 80053; 84484; 85025; 93005; 96360; 99285; J7030